=== PATIENT | female | born 1995 | race Caucasian/White ===

== ENCOUNTER 2017-11-21 11:41 | Inpatient (IN) | payer MEDICAID, SELFPAY | END 2017-11-21 11:49 | disposition short-term general hospital (02) | LOC: OB 11:42 | PROVIDERS: Admitting Provider Obstetrics & Gynecology; Family Provider Obstetrics & Gynecology; PCP Nurse Practitioner Family; Visit Provider Obstetrics & Gynecology ==

== ENCOUNTER 2017-11-21 11:53 | Inpatient (IN) | payer MEDICAID, SELFPAY ==
[2017-11-21] VITALS (31 sets, daily range): BP systolic 104–164; BP diastolic 59–99; PULSE 65–114; RESP 16–20; TEMP 36.2–37.3; O2SAT 99–100; BMI 18.5
[2017-11-21 11:54] LABS: Microscopic, Urine URINE MICROSCOPIC (MICROSCOPIC)
[2017-11-21 12:00] LABS: Appearance,Urine CLEAR (Clear); Bilirubin,Urine Negative (Negative); Blood, Urine Negative (Negative); Color,Urine YELLOW (Yellow); Glucose,Urine (UA) Negative (Negative); Ketones,Urine Negative (Negative); Leukocyte Esterase,Urine 3+ (Negative); Nitrate,Urine Negative (Negative); PH,Urine 7.5 (5.0-8.5); Protein,Urine Negative (Negative); Urobilinogen,Urine 0.2 EU/dl (0.2)
[2017-11-21 12:01] LABS: Basophils # 0.1 K/mm3 (0-0.2); Basophils % 0.3 % (0.1-2.0); Eosinophils # 0.2 K/mm3 (0.0-0.4); Eosinophils % 0.9 % (0.1-12.0); Hematocrit 28.3 % (37.0-47.0); Hemoglobin 8.6 g/dL (12.2-16.2); Lymphocytes # 3.5 K/mm3 (0.7-4.5); Lymphocytes % 21.7 K/mm3 (10-50); Mean Corpuscular HGB Conc 30.4 g/dL (31.8-35.4); Mean Corpuscular Hemoglobin 21.2 pg (27.0-31.2); Mean Corpuscular Volume 69.8 fl (81-99); Mean Platelet Volume 8.9 fl (7.4-10.4); Monocytes # 0.8 K/mm3 (0.1-1.0); Monocytes % 4.6 % (1.7-9.3); Neutrophils # 11.6 K/mm3 (1.8-7.8); Neutrophils % 72.4 % (37.0-80.0); Platelet Count 301 K/mm3 (142-424); Red Blood Count 4.06 M/mm3 (4.20-5.40); Red Cell Distribution Width 17.8 % (11.5-17.5); White Blood Count 16.1 K/mm3 (4.8-10.8)
[2017-11-21 12:04] LABS: MANUAL DIFFERENTIAL MANUAL DIFFERENTIAL (MANUAL DIFF)
[2017-11-21 12:22] LABS: Bacteria,Urine 1+ /lpf; RBC,Urine Occasional #/hpf (0-3); Squamous Epithelial Cell,Urine 20-50 #/hpf (0-5)
[2017-11-21 12:31] LABS: Fetal Membrane Rupture (Rapid) Negative (Negative)
[2017-11-21 12:36] LABS: Eosinophils % 1 % (0-3); Hypochromasia 2+; Lymphocytes % 21 % (10-50); Monocytes % 3 % (2-9); Neutrophils % 75 % (42-76); Total Cells Counted 100
[2017-11-21 12:37] LABS: Microcytosis 2+; Platelet Estimate Normal
[2017-11-21 12:53] LABS: Cord Blood PH 7.24 (7.35-7.45)
--- NOTE | 2017-11-21 13:26 | HMH.OPNOTE ---
Date of procedure: 11/21/17 Pre-op Diagnosis:: 1. Term intrauterine . 2. Previous section. 3. Acute distress. Post-op diagnosis:: same (Course 04/20, male in meconium, cord pH 7.24.) Procedure performed:: Emergency repeat low transverse cervical Surgeon:: Nick Luque MD Network Systems Engineer(s):: DARIELA Murray Keypunch Operators Supervisor:: ALO Edwards Raffety Anesthesia: GETA Estimated blood loss (mL): 600 Clinical Note:: 22-year-old 2, 0 white female arrived in labor room in active labor at 2 cm dilatation at 37-6/7 weeks. She had been scheduled for a repeat section a week hence. On the monitor, deep decelerations were noted, and the decision was made to proceed to emergency repeat section. Therefore the patient was taken the operating room. (see note below) Operative findings:: Acute distress Operative note:: After the patient was prepped and draped in usual fashion and general anesthesia was administered (per patient's request due to extreme anxiety), a low Pfannenstiel incision was made through the previous incision, and the fat and fascia was in usual fashion, bleeders being clamped and coagulated along the way. The peritoneum was entered with a knife, and extended [place] with Metzenbaum scissors. The bladder peritoneum was sharply and bluntly dissected from the area of incision, and the bladder was protected with a bladder blade. The uterus was entered in a low transverse fashion with a knife, an incision was extended bluntly, bilaterally. Amniotic sac was entered with a knife, and a large amount of thin meconium extruded. There was no nuchal cord. The baby was found to be in the AJ position of the vertex and, with appropriate fundal pressure, the head was easily delivered. The baby's nasal and oropharynx were bulb suctioned, and the baby was silent until handed to the attending swaging machine operator, Dr. Kwon. He assigned Apgars of 6 at 1 minute and 7 at 5 minutes to this male (weight and length unknown at this time. The cord was clamped and cut, 3 vessels were to be within the cord, and cord blood was obtained. The cord pH was 6.24. The baby was taken to the nursery in good condition, and is reported to be doing well. The placenta was delivered manually, intact. A ring forceps was used to assure adequate drainage to the cervix; this was then passed off the field, as a nonsterile instrument. The uterus was closed in 2 layers, the first a running locked suture of #1 Vicryl as an endometrial layer, and the second a running unlocked suture of #1 Vicryl as a myometrial layer, imbricating over the first. It should be noted that there was considerable oozing throughout the case, and the tissue integrity was poor. The bladder peritoneum was closed with a running locked suture of 2-0 Vicryl. Blood and clots were then swept from the gut, tubes and ovaries inspected and found to be normal. The peritoneum was grasped with 3 Christine clamps, and closed with a running 7 locked suture of 0 Vicryl. The muscle was approximated with a running unlocked suture of 0 Vicryl. The fascia was closed with a running locked suture of #1 Vicryl. The subcutaneous fat and Raven's fascia were closed with a running unlocked suture of 2-0 Vicryl. The skin was closed with a subcuticular suture of 3-0 Vicryl, and appropriately dressed. The sponge and needle counts correct. Estimated blood loss was 600 cc. The urine was clear in the Donohue catheter. Pelvic examination at the close of procedure expressed blood and clots from an involuting uterus, with IV Pitocin running. The patient's blood type is O+. Rubella titer is immune. She plans to bottle feed. Because of a hemoglobin of 8.6 g on admission and 600 cc blood loss, she will be transfused postoperatively. Condition: stable Disposition: PACU Specimens:: None Complications:: None
--- NOTE | 2017-11-21 13:29 | P.OP_ITS ---
Date of procedure: 11/21/17 Pre-op Diagnosis:: 1. Term intrauterine . 2. Previous section. 3. Acute distress. Post-op diagnosis:: same (Course 04/20, male in meconium, cord pH 7.24.) Procedure performed:: Emergency repeat low transverse cervical Surgeon:: Nick Luque MD Psychiatric Nursing Assistant(s):: DARIELA Murray Student Counsellor:: ALO Edwards Raffety Anesthesia: GETA Estimated blood loss (mL): 600 Clinical Note:: 22-year-old 2, 0 white female arrived in labor room in active labor at 2 cm dilatation at 37-6/7 weeks. She had been scheduled for a repeat section a week hence. On the monitor, deep decelerations were noted, and the decision was made to proceed to emergency repeat section. Therefore the patient was taken the operating room. (see note below) Operative findings:: Acute distress Operative note:: After the patient was prepped and draped in usual fashion and general anesthesia was administered (per patient's request due to extreme anxiety), a low Pfannenstiel incision was made through the previous incision, and the fat and fascia was in usual fashion, bleeders being clamped and coagulated along the way. The peritoneum was entered with a knife, and extended [place] with Metzenbaum scissors. The bladder peritoneum was sharply and bluntly dissected from the area of incision, and the bladder was protected with a bladder blade. The uterus was entered in a low transverse fashion with a knife, an incision was extended bluntly, bilaterally. Amniotic sac was entered with a knife, and a large amount of thin meconium extruded. There was no nuchal cord. The baby was found to be in the AJ position of the vertex and , with appropriate fundal pressure, the head was easily delivered. The baby's nasal and oropharynx were bulb suctioned, and the baby was silent until handed to the attending reporting consultant, Dr. Kwon. He assigned Apgars of 6 at 1 minute and 7 at 5 minutes to this male (weight and length unknown at this time. The cord was clamped and cut, 3 vessels were to be within the cord, and cord blood was obtained. The cord pH was 6.24. The baby was taken to the nursery in good condition, and is reported to be doing well. The placenta was delivered manually, intact. A ring forceps was used to assure adequate drainage to the cervix; this was then passed off the field, as a nonsterile instrument. The uterus was closed in 2 layers, the first a running locked suture of #1 Vicryl as an endometrial layer, and the second a running unlocked suture of #1 Vicryl as a myometrial layer, imbricating over the first. It should be noted that there was considerable oozing throughout the case, and the tissue integrity was poor. The bladder peritoneum was closed with a running locked suture of 2-0 Vicryl. Blood and clots were then swept from the gut, tubes and ovaries inspected and found to be normal. The peritoneum was grasped with 3 Christine clamps, and closed with a running 7 locked suture of 0 Vicryl. The muscle was approximated with a running unlocked suture of 0 Vicryl. The fascia was closed with a running locked suture of #1 Vicryl. The subcutaneous fat and Raven's fascia were closed with a running unlocked suture of 2-0 Vicryl. The skin was closed with a subcuticular suture of 3-0 Vicryl, and appropriately dressed. The sponge and needle counts correct. Estimated blood loss was 600 cc. The urine was clear in the Donohue catheter. Pelvic examination at the close of procedure expressed blood and clots from an involuting uterus, with IV Pitocin running. The patient's blood type is O+. Rubella titer is immune. She plans to daniel
--- NOTE | 2017-11-21 13:32 | P.PN_ITS ---
[facility] Anesthesia Record Part I Intake, IV Amount: 1,800 Estimated blood loss (mL): 600 Urine output (mL): 800 Blood Products used (#): none Blood Pressure: 135/68 SaO2: 100 Pulse Rate: 88 Respiratory Rate: 18 Temperature: 97.2 F Patient is:: Drowsy, Stable Stable to PACU at:: 13:25
--- NOTE | 2017-11-21 13:32 | P.PN_ITS ---
[facility] Anesthesia Record Part II Discharge Time: 13:55 Destination: Obstetric PACU nurse assessment reviewed?: Yes Patient Condition:: Good Anesthesia Complications:: None
--- NOTE | 2017-11-21 16:26 | PC.NURSE ---
1325- AWARE OF PT'S SKIN COOL TO TOUCH AND PALE IN COLOR. PT CURRENTLY BEING TYPED AND CROSSMATCHED FOR 2 UNITS OF BLOOD. AWAITING LAB TO CALL WITH BLOOD READY.
--- NOTE | 2017-11-21 16:36 | PC.NURSE ---
1340-PT MEDICATED WITH MORPHINE 2MG IV ORDERED PER ANESTHESIA. PT RATES ABD PAIN 10. 1345-PT MEDICATED WITH TORADOL 30MG IV PER MAR. PT RATES ABD PAIN 10/10.
--- NOTE | 2017-11-21 16:45 | PC.NURSE ---
1325-PT HAS KNEE IMMOBILIZER IN PLACE FROM PRIOR TO PROCEDURE. IPC ON AND GOING TO LLE ONLY. AWARE.
--- NOTE | 2017-11-21 16:52 | PC.NURSE ---
1349-PT REPORTS PAIN LEVEL 9/10 TO ABD. MEDICATED PER MAR W/MORPHINE 2MG IV 1355-PT REPORTS PAIN LEVEL 8/10 TO ABD, INCREASES WITH MASSAGE. MEDICATED PER MAR W/MORPHINE 2MG IV
--- NOTE | 2017-11-21 16:56 | PC.NURSE ---
1415-PT APPEARS TO BE RESTING EASIER AT THIS TIME. PT REFUSING ADDITIONAL PAIN MEDICATION. PT REPORTS SHE IS READY TO GO UPSTAIRS TO SEE HER BABY. AWAITING OB NURSE TO CALL BACK FOR REPORT.
--- NOTE | 2017-11-21 16:59 | PC.NURSE ---
1420-LAB CALLED AT THIS TIME TO NOTIFY THAT BLOOD TRANSFUSION IS READY. 1421-DESTINY OB RN CALLED FOR REPORT AT THIS TIME. NOTIFIED THAT BLOOD IS READY TO BE TRANSFUSED. DESTINY OB RN STATED THAT TO TRANSPORT PT TO ROOM AND SHE WOULD BEGIN BLOOD TRANSFUSION. NOTIFIED NORA DIXON RN THAT PT REPORTS PAIN LEVEL 8/10 TO ABD BUT REFUSES ANY FURTHER PAIN MEDICATION. PT APPEARS TO BE RESTING EASIER AND REPORTS SHE WANTS TO GO UPSTAIRS TO SEE HER BABY. 1425-PT TRANSPORTED TO OB DEPT ROOM 274 PER WILLIAM VERDUZCO & WILLIAM ISAAC. PT LEFT IN CARE OF WILLIAM DIXON WITH BED LOCKED IN LOWEST POSITION .FAMILY AT BEDSIDE. VSS. PT STABLE.
--- NOTE | 2017-11-21 17:20 | SUR.OPER ---
1242-VIABLE INFANT MALE BORN AT THIS TIME
[2017-11-21 22:53] LABS: Hematocrit 29.5 % (37.0-47.0); Hemoglobin 9.5 g/dL (12.2-16.2)
[2017-11-22 07:22] LABS: Hematocrit 25.8 % (37.0-47.0); Hemoglobin 8.6 g/dL (12.2-16.2)
--- NOTE | 2017-11-22 09:28 | HMH.ACPN ---
Internal Medicine - PN: Subj *Date: 11/22/17 *Time: 07:00 (This is /postop day #1. Patient is afebrile. Vital signs are stable. Uterine fundus involuting well. Abdomen soft. Wound is clean. She has been transfused 2 units of packed cells, and her hemoglobin is now 9.5 g, at which she is stable. Baby has been transferred to because of respiratory difficulties and the patient is asking about transfer later today. I will look into that.) Exam Vital signs and Labs for Last 24 Hours: Temp Pulse Resp BP Pulse Ox 98.1 F 65 18 139/96 100 11/21/17 21:55 11/21/17 21:55 11/21/17 21:55 11/21/17 21:55 11/21/17 21:55 Laboratory Results - last 24 hr 11/21/17 11:20: Membrane Rupture Negative 11/21/17 11:24: Urine Color Yellow, Urine Appearance Clear, Urine pH 7.5, Ur Specific [place] 1.010, Urine Protein Negative, Urine Glucose (UA) Negative, Urine Ketones Negative, Urine Blood Negative, Urine Nitrate Negative, Urine Bilirubin Negative, Urine Urobilinogen 0.2, Ur Leukocyte Esterase 3+ A, Urine RBC Occasional, Urine WBC 10-20, Ur Squamous Epith Cells 20-50, Urine Bacteria 1+ 11/21/17 11:45: WBC 16.1 H, RBC 4.06 L, Hgb 8.6 L, Hct 28.3 L, MCV 69.8 L, MCH 21.2 L, MCHC 30.4 L, RDW 17.8 H, Plt Count 301, MPV 8.9, Neut % (Auto) 72.4, Lymph % (Auto) 21.7, Coffee % (Auto) 4.6, Eos % (Auto) 0.9, Baso % (Auto) 0.3, Neut # (Auto) 11.6 H, Lymph # (Auto) 3.5, Coffee # (Auto) 0.8, Eos # (Auto) 0.2, Baso # (Auto) 0.1, Total Counted 100, Neutrophils % (Manual) 75, Lymphocytes % (Manual) 21, Monocytes % (Manual) 3, Eosinophils % (Manual) 1, Platelet Estimate Normal, Hypochromasia 2+, Microcytosis 2+ 11/21/17 11:45: Blood Type O Positive, Antibody Screen Negative, Crossmatch (AHG) See Detail 11/21/17 12:40: Cord ABG pH 7.24 L* 11/21/17 22:23: Hgb 9.5 L D, Hct 29.5 L 11/22/17 07:03: Hgb 8.6 L, Hct 25.8 L I & O for Last 24 hours: Intake & Output 11/19/17 11/20/17 11/21/17 11/22/17 11:59 11:59 11:59 11:59 Intake Total 2200 / 2200 Output Total 900 / 900 Balance 1300 / 1300
--- NOTE | 2017-11-22 09:31 | P.PN_ITS ---
Internal Medicine - PN: Subj *Date: 11/22/17 *Time: 07:00 (This is /postop day #1. Patient is afebrile. Vital signs are stable. Uterine fundus involuting well. Abdomen soft. Wound is clean. She has been transfused 2 units of packed cells, and her hemoglobin is now 9.5 g, at which she is stable. Baby has been transferred to because of respiratory difficulties and the patient is asking about transfer later today. I will look into that.) Exam Vital signs and Labs for Last 24 Hours: Temp Pulse Resp BP Pulse Ox 98.1 F 65 18 139/96 100 11/21/17 21:55 11/21/17 21:55 11/21/17 21:55 11/21/17 21:55 11/21/17 21:55 Laboratory Results - last 24 hr 11/21/17 11:20: Membrane Rupture Negative 11/21/17 11:24: Urine Color Yellow, Urine Appearance Clear, Urine pH 7.5, Ur Specific [place] 1.010, Urine Protein Negative, Urine Glucose (UA) Negative, Urine Ketones Negative, Urine Blood Negative, Urine Nitrate Negative, Urine Bilirubin Negative, Urine Urobilinogen 0.2, Ur Leukocyte Esterase 3+ A, Urine RBC Occasional, Urine WBC 10-20, Ur Squamous Epith Cells 20-50, Urine Bacteria 1 + 11/21/17 11:45: WBC 16.1 H, RBC 4.06 L, Hgb 8.6 L, Hct 28.3 L, MCV 69.8 L, MCH 21.2 L, MCHC 30.4 L, RDW 17.8 H, Plt Count 301, MPV 8.9, Neut % (Auto) 72.4, Lymph % (Auto) 21.7, [place] % (Auto) 4.6, Eos % (Auto) 0.9, Baso % (Auto) 0.3, Neut # (Auto) 11.6 H, Lymph # (Auto) 3.5, [place] # (Auto) 0.8, Eos # (Auto) 0.2, Baso # (Auto) 0.1, Total Counted 100, Neutrophils % (Manual) 75, Lymphocytes % ( Manual) 21, Monocytes % (Manual) 3, Eosinophils % (Manual) 1, Platelet Estimate Normal, Hypochromasia 2+, Microcytosis 2+ 11/21/17 11:45: Blood Type O Positive, Antibody Screen Negative, Crossmatch (AHG ) See Detail 11/21/17 12:40: Cord ABG pH 7.24 L* 11/21/17 22:23: Hgb 9.5 L D, Hct 29.5 L 11/22/17 07:03: Hgb 8.6 L, Hct 25.8 L I & O for Last 24 hours: Intake & Output 11/19/17 11/20/17 11/21/17 11/22/17 11:59 11:59 11:59 11:59 Intake Total 2200 / 2200 Output Total 900 / 900 Balance 1300 / 1300
--- NOTE | 2017-11-22 12:07 | HMH.PHAVTE ---
[facility] Pharmacy VTE Monitoring - Patient Demographics Admission date: 11/21/17 Report Date: 11/22/17 Time: 12:07 Allergies/Adverse Reactions: nitrofurantoin [From MACROBID] Allergy (Severe, Verified 11/21/17 19:19) S-ANAPHYLAXIS amoxicillin [From AUGMENTIN] Allergy (Mild, Verified 11/21/17 19:19) cefdinir [From OMNICEF] Allergy (Mild, Verified 11/21/17 19:19) clavulanic acid [From AUGMENTIN] Allergy (Mild, Verified 11/21/17 19:19) Sulfa (Sulfonamide Antibiotics) [SULFA (SULFONAMIDE ANTIBIOTICS)] Allergy (Mild, Verified 11/21/17 19:19) acetaminophen [From LORTAB] Allergy (Unknown, Verified 11/21/17 19:19) azithromycin [AZITHROMYCIN] Allergy (Unknown, Verified 11/21/17 19:19) hydrocodone [From LORTAB] Allergy (Unknown, Verified 11/21/17 19:17) Height: 1.55 m Weight: 44.476 kg - VTE Risk Labs: VTE Related Lab Results Hgb 8.6 g/dL (12.2-16.2) L 11/22/17 07:03 Hct 25.8 % (37.0-47.0) L 11/22/17 07:03 Plt Count 301 K/mm3 (142-424) 11/21/17 11:45 - Prophylaxis Types of VTE Prophylaxis: IPCS Knee High
--- NOTE | 2017-11-22 13:35 | P.PN_ITS ---
Internal Medicine - PN: Subj *Date: 11/22/17 *Time: 13:33 (Patient remained stable. I have checked with the the baby is improving. The baby will be on antibiotics for at least a couple of days, and the patient wishes to be transferred for compassionate care . I have checked with Dr. Nicole Ramos at , and she is agreed to accept the patient under those circumstances. It will be arranged.) Exam Vital signs and Labs for Last 24 Hours: Temp Pulse Resp BP Pulse Ox 98.1 F 65 18 139/96 100 11/21/17 21:55 11/21/17 21:55 11/21/17 21:55 11/21/17 21:55 11/21/17 21:55 Laboratory Results - last 24 hr 11/21/17 11:45: Blood Type O Positive, Antibody Screen Negative, Crossmatch (AHG ) See Detail 11/21/17 22:23: Hgb 9.5 L D, Hct 29.5 L 11/22/17 07:03: Hgb 8.6 L, Hct 25.8 L I & O for Last 24 hours: Intake & Output 11/20/17 11/21/17 11/22/17 11/23/17 11:59 11:59 11:59 11:59 Intake Total 2200 / 2200 Output Total 900 / 900 Balance 1300 / 1300 Microbiology Reports for the Last 24 Hours: Microbiology 11/21/17 11:24 Urine,Clean Catch Urine Culture - Preliminary NO GROWTH AFTER 24 HOURS
--- NOTE | 2018-04-07 13:10 | P.DS_ITS ---
General - General Admission date:: 11/21/17 Discharge date: 11/25/17 Hospital Course Hospital Course: 23-year-old white female ( 2, para 1) arrived in the labor room in active labor at 37-6/7 weeks. She was scheduled for a repeat section the following week. Deep decelerations were noted on the monitor and the decision was made to proceed to emergency repeat section the patient was then taken to the operating room where the procedure carried out, without complications. The baby had Apgars of 6 at 1 minute and 7 at 5 minutes and was a male infant, who is subsequently done well. and postoperatively, the patient did well. She was discharged home on the fourth postoperative day, on iron and vitamins and Tylenol and Motrin, as needed for pain. (This report is possibly slightly inaccurate, as the original report was lost in the transition to a new computer system. It is being dictated 4 months later to the best of my recollection.) She was given appropriate instructions as to diet and exercise, and an appointment for follow-up 2 weeks later. Objective Vital signs: Temp Pulse Resp BP Pulse Ox 98.1 F 65 18 139/96 100 11/21/17 21:55 11/21/17 21:55 11/21/17 21:55 11/21/17 21:55 11/21/17 21:55 Discharge Plan - Patient Discharge Instructions Additional Instructions: NO HEAVY LIFTING OR DRIVING FOR 2 WEEKS OR WHILE TAKING PAIN MEDICATIONS. NOTHING IN VAGINA FOR 6 WEEKS Patient Instructions: Post Discharge Instructions - Follow up Plan Disposition: Home, Self-Senior Living Medications: Home Medications Medication Instructions Recorded Confirmed Type Polyethylene Glycol 3350 [Miralax 17 gm PO DAILY 11/22/17 02/07/18 History 17gm Packet] hydrOXYzine pamoate [Vistaril] 25 mg PO TID 11/22/17 02/07/18 History Prescriptions/Medication Reconciliation: No Action Polyethylene Glycol 3350 [Miralax 17gm Packet] 17 gm PO DAILY predniSONE [Deltasone 10mg tablet] 10 mg PO BID 5 Days #10 tab hydrOXYzine pamoate [Vistaril] 25 mg PO TID Amoxicillin [Amoxicillin 500mg Tab] 500 mg PO TID 10 Days #30 tab Loratadine [Claritin 10mg Tablet] 10 mg PO DAILY #14 tab
== END 2017-11-22 20:45 | disposition home or self-care (01) | DRG 775 ==
LOC: OBOUT 11:55
PROVIDERS: Admitting Provider Obstetrics & Gynecology; PCP Nurse Practitioner Family; Visit Provider Obstetrics & Gynecology
PROC: 10S0XZZ Reposition Products of Conception, External Approach (ICD-10-PCS; CPT 59514; principal; 2017-11-21 12:00)
DX: O34.211 Maternal care for low transverse scar from previous cesarean delivery (principal); Z37.0 Single live birth; N85.8 Other specified noninflammatory disorders of uterus; O76 Abnormality in fetal heart rate and rhythm complicating labor and delivery; Z3A.37 37 weeks gestation of pregnancy
CPT/HCPCS: 59514; 36415; 59025; 81001; 82800; 84112; 85007; 85014; 85018; 85025; 86850; 87086; J0131; J0330; J2405; P9016

== ENCOUNTER 2017-12-27 19:48 | Emergency (ER) | payer MEDICAID, SELFPAY ==
[2017-12-27 19:57] VITALS: BP 122/91; PULSE 92; RESP 18; TEMP 37.1; O2SAT 97; BMI 14.9
--- NOTE | 2017-12-27 21:24 | PC.NURSE ---
REPORT CALLED TO CHETAN AT [facility] IN [place]
--- NOTE | 2017-12-27 22:58 | HMH.EDGENADL ---
ED Disposition Clinical Impression: Incisional pain Disposition: Home, Self-Care Condition on Discharge: Good Instructions: DI for Acute Pain -- Adult Additional Instructions: see dr castro this week Referrals: Jami Sanders APRN [Primary Care Provider] - - Critical Care Critical Care Time: No Attestation: On 12/27/17, the high probability of a clinically significant, sudden or life threatening deterioration of the following system(s) required my full and direct attention, intervention and personal management. The time I documented below is in addition to time spent performing reported procedures but includes the following listed in this critical care notation. Medical Decision Making - Medical Records Medical records reviewed: Yes: I reviewed the patient's medical records. Vital Signs: 12/27/17 19:57 Temperature 98.7 F Temperature Source Oral Pulse Rate [Right] 92 H Respiratory Rate 18 Blood Pressure [Right Arm] 122/91 Blood Pressure Mean [Right Arm] 101 Blood Pressure Source [Right Arm] Automatic Cuff Blood Pressure Position [Right Arm] Sitting 02 Sat by Pulse Oximetry 97 Oxygen Delivery Method Room Air - Lab Data Lab results reviewed: Yes: I reviewed the patient's lab results. Lab Results 12/27/17 21:00: Urine Color Yellow, Urine Appearance Clear, Urine pH 6.0, Ur Specific [place] <= 1.005, Urine Protein Negative, Urine Glucose (UA) Negative, Urine Ketones Negative, Urine Blood Trace-i, Urine Nitrate Negative, Urine Bilirubin Negative, Urine Urobilinogen 0.2, Ur Leukocyte Esterase Negative Orders (Tests/Meds): ORDERS Category Date Time Status UA [Urinalysis and Microscopic] Stat Lab 12/27/17 21:00 Results - Physician Consults Physician Consulted: [email or web address] Reason -: Pt condition - Anthony Inquiry Pt receiving controlled substance: No General Adult HPI - General Chief complaint: PAIN Stated complaint: Stitches Opened/Site Pain Time Seen by Provider: 12/27/17 22:58 Mode of Arrival: Ambulatory Source of Information: Patient, Relative, Medical Record Limitations: No Limitations Description of Symptoms (Recalled from ER Triage Doc. by RN): HAD A C SECTION ONE MONTH AGO. C/O PAIN AND BLEEDING FROM EDGES. AREA NOTED TO HAVE SMALL SCABBED AREAS TO EDGES NO BLEEDING OR DRAINAGE PRESENT. C/O BLOOD IN URINE AND PAIN WITH URINATION - History of Present Illness HPI narrative: recent c sec and has pain at end of incision Onset (ago): day(s) Radiation: non-radiation Severity: moderate - Related Data Home Medications Medication Instructions Recorded Confirmed Metoprolol Tartrate [Lopressor 50 mg PO DAILY 11/22/17 12/27/17 50mg tablet] Polyethylene Glycol 3350 [Miralax 17 gm PO DAILY 11/22/17 12/27/17 17gm Packet] hydrOXYzine pamoate [Vistaril] 25 mg PO TID 11/22/17 12/27/17 Allergies Allergy/AdvReac Type Severity Reaction Status Date / Time nitrofurantoin Allergy Severe S-ANAPHYLAX Verified 11/21/17 19:19 [From MACROBID] IS amoxicillin [From AUGMENTIN] Allergy Mild Verified 11/21/17 19:19 cefdinir [From OMNICEF] Allergy Mild Verified 11/21/17 19:19 clavulanic acid Allergy Mild Verified 11/21/17 19:19 [From AUGMENTIN] Sulfa (Sulfonamide Allergy Mild Verified 11/21/17 19:19 Antibiotics) [SULFA (SULFONAMIDE ANTIBIOTICS)] acetaminophen [From LORTAB] Allergy Unknown Verified 11/21/17 19:19 azithromycin [AZITHROMYCIN] Allergy Unknown Verified 11/21/17 19:19 hydrocodone [From LORTAB] Allergy Unknown Verified 11/21/17 19:17 [facility] History I have reviewed the patient's past medical history: Yes Medical History: Denies:: Internal Pacemaker Other Surgeries: No: Pacemaker - *Social History Educational Level: Attended Grade School Smoking Status: Never smoker Alcohol Intake: never - Psychiatric History Expresses thoughts of harming self/others: None Suicide Plan Description: No Plan ROS Obtained: Yes All systems reviewe
[2017-12-27 23:07] LABS: Microscopic, Urine URINE MICROSCOPIC (MICROSCOPIC)
--- NOTE | 2017-12-27 23:07 | ED_ITS ---
ED Disposition Clinical Impression: Incisional pain Disposition: Home, Self-Care Condition on Discharge: Good Instructions: DI for Acute Pain -- Adult Additional Instructions: see dr castro this week Referrals: Jami Sanders APRN [Primary Care Provider] - - Critical Care Critical Care Time: No Attestation: On 12/27/17, the high probability of a clinically significant, sudden or life threatening deterioration of the following system(s) required my full and direct attention, intervention and personal management. The time I documented below is in addition to time spent performing reported procedures but includes the following listed in this critical care notation. Medical Decision Making - Medical Records Medical records reviewed: Yes: I reviewed the patient's medical records. Vital Signs: 12/27/17 19:57 Temperature 98.7 F Temperature Source Oral Pulse Rate [Right] 92 H Respiratory Rate 18 Blood Pressure [Right Arm] 122/91 Blood Pressure Mean [Right Arm] 101 Blood Pressure Source [Right Arm] Automatic Cuff Blood Pressure Position [Right Arm] Sitting 02 Sat by Pulse Oximetry 97 Oxygen Delivery Method Room Air - Lab Data Lab results reviewed: Yes: I reviewed the patient's lab results. Lab Results 12/27/17 21:00: Urine Color Yellow, Urine Appearance Clear, Urine pH 6.0, Ur Specific [place] <= 1.005, Urine Protein Negative, Urine Glucose (UA) Negative, Urine Ketones Negative, Urine Blood Trace-i, Urine Nitrate Negative, Urine Bilirubin Negative, Urine Urobilinogen 0.2, Ur Leukocyte Esterase Negative Orders (Tests/Meds): ORDERS Category Date Time Status UA [Urinalysis and Microscopic] Stat Lab 12/27/17 21:00 Results - Physician Consults Physician Consulted: [email or web address] Reason -: Pt condition - Anthony Inquiry Pt receiving controlled substance: No General Adult HPI - General Chief complaint: PAIN Stated complaint: Stitches Opened/Site Pain Time Seen by Provider: 12/27/17 22:58 Mode of Arrival: Ambulatory Source of Information: Patient, Relative, Medical Record Limitations: No Limitations Description of Symptoms (Recalled from ER Triage Doc. by RN): HAD A C SECTION ONE MONTH AGO. C/O PAIN AND BLEEDING FROM EDGES. AREA NOTED TO HAVE SMALL SCABBED AREAS TO EDGES NO BLEEDING OR DRAINAGE PRESENT. C/O BLOOD IN URINE AND PAIN WITH URINATION - History of Present Illness HPI narrative: recent c sec and has pain at end of incision Onset (ago): day(s) Radiation: non-radiation Severity: moderate - Related Data Home Medications Medication Instructions Recorded Confirmed Metoprolol Tartrate [Lopressor 50 mg PO DAILY 11/22/17 12/27/17 50mg tablet] Polyethylene Glycol 3350 [Miralax 17 gm PO DAILY 11/22/17 12/27/17 17gm Packet] hydrOXYzine pamoate [Vistaril] 25 mg PO TID 11/22/17 12/27/17 Allergies Allergy/AdvReac Type Severity Reaction Status Date / Time nitrofurantoin Allergy Severe S-ANAPHYLAX Verified 11/21/17 19:19 [From MACROBID] IS amoxicillin [From AUGMENTIN] Allergy Mild Verified 11/21/17 19:19 cefdinir [From OMNICEF] Allergy Mild Verified 11/21/17 19:19 clavulanic acid Allergy Mild Verified 11/21/17 19:19 [From AUGMENTIN] Sulfa (Sulfonamide Allergy Mild Verified 11/21/17 19:19 Ant
[2017-12-27 23:09] LABS: Appearance,Urine CLEAR (Clear); Bilirubin,Urine Negative (Negative); Blood, Urine TRACE-I (Negative); Color,Urine YELLOW (Yellow); Glucose,Urine (UA) Negative (Negative); Ketones,Urine Negative (Negative); Leukocyte Esterase,Urine Negative (Negative); Nitrate,Urine Negative (Negative); Protein,Urine Negative (Negative); Specific Gravity, Urine <= 1.005 (1.005-1.030); Urobilinogen,Urine 0.2 EU/dl (0.2)
[2017-12-27 23:27] VITALS: BP 118/68; PULSE 74; RESP 16; TEMP 37.2; O2SAT 99
[2017-12-28 01:02] LABS: Bacteria,Urine 1+ /lpf; WBC,Urine Occasional #/hpf (0-3)
== END 2017-12-27 23:32 | disposition home or self-care (01) ==
PROVIDERS: Emergency Medicine; Emergency Provider Emergency Medicine; Family Provider Obstetrics & Gynecology; PCP Nurse Practitioner Family
DX: G89.18 Other acute postprocedural pain (principal); Z79.899 Other long term (current) drug therapy; Z88.1 Allergy status to other antibiotic agents; Z88.2 Allergy status to sulfonamides
CPT/HCPCS: 81001; 99282

== ENCOUNTER 2018-02-04 15:05 | Emergency (ER) | payer MEDICAID, SELFPAY ==
[2018-02-04 15:11] VITALS: BP 117/79; PULSE 99; RESP 18; TEMP 37; O2SAT 96; BMI 14.3
--- NOTE | 2018-02-04 15:16 | HMH.EDURI ---
ED Disposition Clinical Impression: Otitis media Qualifiers: Otitis media type: unspecified Chronicity: acute Qualified Code(s): H66.90 - Otitis media, unspecified, unspecified ear Disposition: Home, Self-Care Condition on Discharge: Good Instructions: DI for Otitis Media (Middle Ear Infection)-Child Additional Instructions: Fluids, Tylenol, follow up with your family doctor in two to three days; Rx amoxicillin, which you have stated is not an allergy. Prescriptions: Amoxicillin [Amoxicillin 500mg Tab] 500 mg PO TID 10 Days #30 tab - Critical Care Critical Care Time: No Attestation: On , the high probability of a clinically significant, sudden or life threatening deterioration of the following system(s) required my full and direct attention, intervention and personal management. The time I documented below is in addition to time spent performing reported procedures but includes the following listed in this critical care notation. Medical Decision Making - Anthony Inquiry Pt receiving controlled substance: No Vital Signs: 02/04/18 15:11 Temperature 98.6 F Temperature Source Oral Pulse Rate [Right Brachial] 99 H Respiratory Rate 18 Blood Pressure [Right Arm] 117/79 Blood Pressure Mean [Right Arm] 91 Blood Pressure Source [Right Arm] Automatic Cuff Blood Pressure Position [Right Arm] Sitting 02 Sat by Pulse Oximetry 96 Oxygen Delivery Method Room Air URI/Sore Throat HPI - General Chief Complaint: Ear Stated Complaint: sore throat, head congestion Time Seen by Provider: 02/04/18 15:16 Mode of Arrival: Ambulatory Source of Information: Patient Limitations: No Limitations Description of Symptoms (Recalled from ER Triage Doc. by RN): PT C/O SORE THROAT AND EAR PAIN - History of Present Illness MD Complaint: cough, sore throat, rhinorrhea, nasal congestion, other (B earache x one day; no flu sx) Onset (ago): day(s) Severity: mild Relieving factors: nothing Exacerbating factors: nothing Able to tolerate fluids by mouth: Yes Associated symptoms: rhinorrhea, nasal congestion, sore throat, cough Treatments prior to arrival: none - Related Data Home Medications Medication Instructions Recorded Confirmed Metoprolol Tartrate [Lopressor 50 mg PO DAILY 11/22/17 12/27/17 50mg tablet] Polyethylene Glycol 3350 [Miralax 17 gm PO DAILY 11/22/17 12/27/17 17gm Packet] hydrOXYzine pamoate [Vistaril] 25 mg PO TID 11/22/17 12/27/17 Previous Rx's Medication Instructions Recorded norgestimate-ethinyl estradiol 1 tab PO DAILY 28 Days #28 tab 01/03/18 0.18 mg/0.215mg/0.25mg-35 mcg(28)tablet Amoxicillin [Amoxicillin 500mg Tab] 500 mg PO TID 10 Days #30 tab 02/04/18 Allergies Allergy/AdvReac Type Severity Reaction Status Date / Time nitrofurantoin Allergy Severe S-ANAPHYLAX Verified 01/03/18 15:25 [From MACROBID] IS amoxicillin [From AUGMENTIN] Allergy Mild Verified 01/03/18 15:25 cefdinir [From OMNICEF] Allergy Mild Verified 01/03/18 15:25 clavulanic acid Allergy Mild Verified 01/03/18 15:25 [From AUGMENTIN] Sulfa (Sulfonamide Allergy Mild Verified 01/03/18 15:25 Antibiotics) [SULFA (SULFONAMIDE ANTIBIOTICS)] acetaminophen [From LORTAB] Allergy Unknown Verified 01/03/18 15:25 azithromycin [AZITHROMYCIN] Allergy Unknown Verified 01/03/18 15:25 hydrocodone [From LORTAB] Allergy Unknown Verified 01/03/18 15:25 H History Medical History: Reports:: Anxiety Denies:: Diabetes Mellitus Type 1, Diabetes Mellitus Type 2, Internal Pacemaker Other Medical History: Reports: Other Comment: IBS Other Surgeries: No: Pacemaker - Social History Smoking Status: Never smoker Alcohol Intake: never - Psychiatric History Expresses thoughts of harming self/others: None Suicide Plan Description: No Plan Pschychiatric History:: Reports:: Anxiety ROS Obtained: Yes All systems reviewed & no additional complaints - Neurologic Neurologic: Reports other (hx anxiety) Phy
--- NOTE | 2018-02-04 15:19 | ED_ITS ---
ED Disposition Clinical Impression: Otitis media Qualifiers: Otitis media type: unspecified Chronicity: acute Qualified Code(s): H66.90 - Otitis media, unspecified, unspecified ear Disposition: Home, Self-Care Condition on Discharge: Good Instructions: DI for Otitis Media (Middle Ear Infection)-Child Additional Instructions: Fluids, Tylenol, follow up with your family doctor in two to three days; Rx amoxicillin, which you have stated is not an allergy. Prescriptions: Amoxicillin [Amoxicillin 500mg Tab] 500 mg PO TID 10 Days #30 tab - Critical Care Critical Care Time: No Attestation: On , the high probability of a clinically significant, sudden or life threatening deterioration of the following system(s) required my full and direct attention, intervention and personal management. The time I documented below is in addition to time spent performing reported procedures but includes the following listed in this critical care notation. Medical Decision Making - Anthony Inquiry Pt receiving controlled substance: No Vital Signs: 02/04/18 15:11 Temperature 98.6 F Temperature Source Oral Pulse Rate [Right Brachial] 99 H Respiratory Rate 18 Blood Pressure [Right Arm] 117/79 Blood Pressure Mean [Right Arm] 91 Blood Pressure Source [Right Arm] Automatic Cuff Blood Pressure Position [Right Arm] Sitting 02 Sat by Pulse Oximetry 96 Oxygen Delivery Method Room Air URI/Sore Throat HPI - General Chief Complaint: Ear Stated Complaint: sore throat, head congestion Time Seen by Provider: 02/04/18 15:16 Mode of Arrival: Ambulatory Source of Information: Patient Limitations: No Limitations Description of Symptoms (Recalled from ER Triage Doc. by RN): PT C/O SORE THROAT AND EAR PAIN - History of Present Illness MD Complaint: cough, sore throat, rhinorrhea, nasal congestion, other (B earache x one day; no flu sx) Onset (ago): day(s) Severity: mild Relieving factors: nothing Exacerbating factors: nothing Able to tolerate fluids by mouth: Yes Associated symptoms: rhinorrhea, nasal congestion, sore throat, cough Treatments prior to arrival: none - Related Data Home Medications Medication Instructions Recorded Confirmed Metoprolol Tartrate [Lopressor 50 mg PO DAILY 11/22/17 12/27/17 50mg tablet] Polyethylene Glycol 3350 [Miralax 17 gm PO DAILY 11/22/17 12/27/17 17gm Packet] hydrOXYzine pamoate [Vistaril] 25 mg PO TID 11/22/17 12/27/17 Previous Rx's Medication Instructions Recorded norgestimate-ethinyl estradiol 1 tab PO DAILY 28 Days #28 tab 01/03/18 0.18 mg/0.215mg/0.25mg-35 mcg(28)tablet Amoxicillin [Amoxicillin 500mg Tab] 500 mg PO TID 10 Days #30 tab 02/04/18 Allergies Allergy/AdvReac Type Severity Reaction Status Date / Time nitrofurantoin Allergy Severe S-ANAPHYLAX Verified 01/03/18 15:25 [From MACROBID] IS amoxicillin [From AUGMENTIN] Allergy Mild Verified 01/03/18 15:25 cefdinir [From OMNICEF] Allergy Mild Verified 01/03/18 15:25 clavulanic acid Allergy Mild Verified 01/03/18 15:25 [From AUGMENTIN] Sulfa (Sulfonamide Allergy Mild Verified 01/03/18 15:25 Antibiotics) [SULFA (SULFONAMIDE ANTIBIOTICS)] acetaminophen [From LORTAB] Allergy Unknown Verified 01/03/18 15:25 azith
[2018-02-04 17:12] VITALS: BP 127/85; PULSE 72; RESP 18; TEMP 36.7; O2SAT 99
== END 2018-02-04 16:10 | disposition home or self-care (01) ==
PROVIDERS: Emergency Provider Emergency Medicine; Family Provider Obstetrics & Gynecology; PCP Nurse Practitioner Family
DX: H66.93 Otitis media, unspecified, bilateral (principal); Z95.0 Presence of cardiac pacemaker; Z88.2 Allergy status to sulfonamides; Z88.1 Allergy status to other antibiotic agents
CPT/HCPCS: 99282

== ENCOUNTER 2018-02-07 01:33 | Emergency (ER) | payer MEDICAID, SELFPAY ==
[2018-02-07 01:34] VITALS: BP 136/93; PULSE 86; RESP 20; TEMP 36.6; O2SAT 98; BMI 16.2
--- NOTE | 2018-02-07 01:39 | XR_ITS ---
XR chest 2V HISTORY: ITS.REASON: cough ORDERING PHYSICIAN: Fede Bird MD PATIENT AGE: 22 years COMPARISON: 11/26/2016 FINDINGS: The cardiomediastinal silhouette and pulmonary vascularity are within normal limits. On the lateral view there is an 11 mm nodular density in the lower lobe posteriorly. This is not identified on the frontal view. While this could be related to artifact from overlying summation density from the ribs and spine as the patient is slightly rotated, one cannot exclude possibility of a developing nodule. This is not readily apparent on multiple previous exams. Follow-up radiograph suggested. If this persists then, CT may be needed for further evaluation. No lobar consolidation or collapse.. No acute bony abnormalities. IMPRESSION: 1. 11 mm nodular opacity in the lung base posteriorly possibly related to overlying summation density versus developing pulmonary nodule. Follow-up recommended. 2. Otherwise negative chest.
[2018-02-07 02:06] LABS: Strep Scrn Group A (Rapid) Negative (Negative)
--- NOTE | 2018-02-07 04:36 | HMH.EDGENADL ---
ED Disposition Clinical Impression: Laryngitis Disposition: Home, Self-Care Condition on Discharge: Good Instructions: DI for Laryngitis Additional Instructions: use meds and see pcp for follow up Prescriptions: Loratadine [Claritin 10mg Tablet] 10 mg PO DAILY #14 tab predniSONE [Deltasone 10mg tablet] 10 mg PO BID 5 Days #10 tab Referrals: Jami Sanders APRN [Primary Care Provider] - - Critical Care Critical Care Time: No Attestation: On 02/07/18, the high probability of a clinically significant, sudden or life threatening deterioration of the following system(s) required my full and direct attention, intervention and personal management. The time I documented below is in addition to time spent performing reported procedures but includes the following listed in this critical care notation. Medical Decision Making - Medical Records Medical records reviewed: Yes: I reviewed the patient's medical records. - Anthony Inquiry Pt receiving controlled substance: No Vital Signs: 02/07/18 01:34 Temperature 97.9 F Temperature Source Oral Pulse Rate [Right Radial] 86 Respiratory Rate 20 Blood Pressure [Right Radial Artery] 136/93 Blood Pressure Mean [Right Radial Artery] 107 Blood Pressure Position [Right Radial Artery] Sitting 02 Sat by Pulse Oximetry 98 Oxygen Delivery Method Room Air - Lab Data Lab Results 02/07/18 01:30: Influenza Type A Ag Negative, Influenza Type B Ag Negative, Group A Strep Rapid Negative Orders (Tests/Meds): ORDERS Category Date Time Status Chest XR 2 view (NOT portable) [XR chest 2V] Stat Exams 02/07/18 01:39 Taken Strep Screen Confirmation Stat Micro 02/07/18 01:30 Received General Adult HPI - General Chief complaint: PAIN Stated complaint: throat pain Time Seen by Provider: 02/07/18 04:36 Mode of Arrival: EMS Limitations: No Limitations Description of Symptoms (Recalled from ER Triage Doc. by RN): throat pain, muffled voice x 2 days. pt is on antibx for left ear infection at this time. - History of Present Illness HPI narrative: pt with recent ear infection on abx and over the day dev sore throat with laryngitis - pt with no rash - no tob - pt presented with progressive sx Onset (ago): day(s) Location: mouth Severity: moderate - Related Data Home Medications Medication Instructions Recorded Confirmed Polyethylene Glycol 3350 [Miralax 17 gm PO DAILY 11/22/17 02/07/18 17gm Packet] hydrOXYzine pamoate [Vistaril] 25 mg PO TID 11/22/17 02/07/18 Previous Rx's Medication Instructions Recorded Amoxicillin [Amoxicillin 500mg Tab] 500 mg PO TID 10 Days #30 tab 02/04/18 Loratadine [Claritin 10mg Tablet] 10 mg PO DAILY #14 tab 02/07/18 predniSONE [Deltasone 10mg tablet] 10 mg PO BID 5 Days #10 tab 02/07/18 Allergies Allergy/AdvReac Type Severity Reaction Status Date / Time nitrofurantoin Allergy Severe S-ANAPHYLAX Verified 01/03/18 15:25 [From MACROBID] IS cefdinir [From OMNICEF] Allergy Mild Verified 01/03/18 15:25 clavulanic acid Allergy Mild Verified 01/03/18 15:25 [From AUGMENTIN] Sulfa (Sulfonamide Allergy Mild Verified 01/03/18 15:25 Antibiotics) [SULFA (SULFONAMIDE ANTIBIOTICS)] acetaminophen [From LORTAB] Allergy Unknown Verified 01/03/18 15:25 azithromycin [AZITHROMYCIN] Allergy Unknown Verified 01/03/18 15:25 hydrocodone [From LORTAB] Allergy Unknown Verified 01/03/18 15:25 [facility] History I have reviewed the patient's past medical history: Yes Medical History: Reports:: Anxiety Denies:: Cancer, Diabetes Mellitus Type 1, Diabetes Mellitus Type 2, Internal Pacemaker, MRSA Other Medical History: Reports: Other Comment: IBS Other Surgeries: No: Pacemaker Amputation: No Fractures: No - Social History Smoking Status: Never smoker Alcohol Intake: never - Psychiatric History Expresses thoughts of harming self/others: None Suicide Plan Description: No Plan Pschychiatric History:: Rep
--- NOTE | 2018-02-07 04:42 | ED_ITS ---
ED Disposition Clinical Impression: Laryngitis Disposition: Home, Self-Care Condition on Discharge: Good Instructions: DI for Laryngitis Additional Instructions: use meds and see pcp for follow up Prescriptions: Loratadine [Claritin 10mg Tablet] 10 mg PO DAILY #14 tab predniSONE [Deltasone 10mg tablet] 10 mg PO BID 5 Days #10 tab Referrals: Jami Sanders APRN [Primary Care Provider] - - Critical Care Critical Care Time: No Attestation: On 02/07/18, the high probability of a clinically significant, sudden or life threatening deterioration of the following system(s) required my full and direct attention, intervention and personal management. The time I documented below is in addition to time spent performing reported procedures but includes the following listed in this critical care notation. Medical Decision Making - Medical Records Medical records reviewed: Yes: I reviewed the patient's medical records. - Anthony Inquiry Pt receiving controlled substance: No Vital Signs: 02/07/18 01:34 Temperature 97.9 F Temperature Source Oral Pulse Rate [Right Radial] 86 Respiratory Rate 20 Blood Pressure [Right Radial Artery] 136/93 Blood Pressure Mean [Right Radial Artery] 107 Blood Pressure Position [Right Radial Artery] Sitting 02 Sat by Pulse Oximetry 98 Oxygen Delivery Method Room Air - Lab Data Lab Results 02/07/18 01:30: Influenza Type A Ag Negative, Influenza Type B Ag Negative, Group A Strep Rapid Negative Orders (Tests/Meds): ORDERS Category Date Time Status Chest XR 2 view (NOT portable) [XR chest 2V] Stat Exams 02/07/18 01:39 Taken Strep Screen Confirmation Stat Micro 02/07/18 01:30 Received General Adult HPI - General Chief complaint: PAIN Stated complaint: throat pain Time Seen by Provider: 02/07/18 04:36 Mode of Arrival: EMS Limitations: No Limitations Description of Symptoms (Recalled from ER Triage Doc. by RN): throat pain, muffled voice x 2 days. pt is on antibx for left ear infection at this time. - History of Present Illness HPI narrative: pt with recent ear infection on abx and over the day dev sore throat with laryngitis - pt with no rash - no tob - pt presented with progressive sx Onset (ago): day(s) Location: mouth Severity: moderate - Related Data Home Medications Medication Instructions Recorded Confirmed Polyethylene Glycol 3350 [Miralax 17 gm PO DAILY 11/22/17 02/07/18 17gm Packet] hydrOXYzine pamoate [Vistaril] 25 mg PO TID 11/22/17 02/07/18 Previous Rx's Medication Instructions Recorded Amoxicillin [Amoxicillin 500mg Tab] 500 mg PO TID 10 Days #30 tab 02/04/18 Loratadine [Claritin 10mg Tablet] 10 mg PO DAILY #14 tab 02/07/18 predniSONE [Deltasone 10mg tablet] 10 mg PO BID 5 Days #10 tab 02/07/18 Allergies Allergy/AdvReac Type Severity Reaction Status Date / Time nitrofurantoin Allergy Severe S-ANAPHYLAX Verified 01/03/18 15:25 [From MACROBID] IS cefdinir [From OMNICEF] Allergy Mild Verified 01/03/18 15:25 clavulanic acid Allergy Mild Verified 01/03/18 15:25 [From AUGMENTIN] Sulfa (Sulfonamide Allergy Mild Verified 01/03/18 15:25 Antibiotics) [SULFA (SULFONAMIDE ANTIBIOTICS)]
[2018-02-07 04:56] VITALS: BP 110/67; PULSE 64; RESP 18; TEMP 37.1; O2SAT 98
== END 2018-02-07 05:05 | disposition home or self-care (01) ==
PROVIDERS: Emergency Provider Emergency Medicine; Family Provider Obstetrics & Gynecology; PCP Nurse Practitioner Family
DX: J04.0 Acute laryngitis (principal); F41.9 Anxiety disorder, unspecified; Z88.1 Allergy status to other antibiotic agents; Z88.2 Allergy status to sulfonamides; Z88.6 Allergy status to analgesic agent
CPT/HCPCS: 71046; 87275; 87276; 87430; 99283

== ENCOUNTER → 2021-06-15 14:44 | Outpatient (CLI) | payer MEDICAID, SELFPAY ==
[2021-06-15 15:10] LABS: Basophils # 0.1 K/mm3 (0-0.2); Basophils % 0.9 % (0.1-2.0); Eosinophils # 0.2 K/mm3 (0.0-0.4); Eosinophils % 2.3 % (0.1-12.0); Hematocrit 40.2 % (37.0-47.0); Hemoglobin 13.9 g/dL (12.2-16.2); Lymphocytes # 3.8 K/mm3 (0.7-4.5); Lymphocytes % 45.8 % (10-50); Mean Corpuscular HGB Conc 34.5 g/dL (31.8-35.4); Mean Corpuscular Hemoglobin 31.3 pg (27.0-31.2); Mean Corpuscular Volume 90.8 fl (81-99); Mean Platelet Volume 8.1 fl (7.4-10.4); Monocytes # 0.5 K/mm3 (0.1-1.0); Monocytes % 6.2 % (1.7-9.3); Neutrophils # 3.7 K/mm3 (1.8-7.8); Neutrophils % 44.8 % (37.0-80.0); Platelet Count 287 K/mm3 (142-424); Red Blood Count 4.43 M/mm3 (4.20-5.40); Red Cell Distribution Width 12.2 % (11.5-17.5); White Blood Count 8.2 K/mm3 (4.8-10.8)
[2021-06-15 15:35] LABS: Creatine Kinase 31 U/L (30-135)
[2021-06-15 16:43] LABS: Vitamin B12 310 pg/mL (239-931)
[2021-06-15 17:07] LABS: Folate 4.73 ng/mL
[2021-06-18 06:05] LABS: Zinc 80 ug/dL (44-115)
== END ==
PROVIDERS: Visit Provider Specialist
DX: R53.1 Weakness (principal)
CPT/HCPCS: 36415; 82525; 82550; 82607; 82746; 84630; 85025; 86618

== ENCOUNTER → 2021-06-26 07:46 | Outpatient (CLI) | payer MEDICAID, SELFPAY ==
--- NOTE | 2021-06-26 07:47 | MR_ITS ---
PROCEDURE: MR CERVICAL SPINE WO CON CLINICAL INDICATION: weakness, numbness x 4 limbs Right-sided neck pain and headache COMPARISON: No exams were available for comparison TECHNIQUE: Standard multiplanar multiecho sequences are performed without contrast. 3-D MIP and myelographic images are also rendered and reviewed FINDINGS: There is normal alignment. Craniocervical junction has an unremarkable appearance. No disc herniation or canal stenosis. No foraminal narrowing. There is slight decrease in the disc spaces with minimal disc desiccation. Degenerative disc disease also noted at T2-T3. No significant disc bulge is. No fracture or dislocation. No bony destructive changes. IMPRESSION: Minimal degenerative change. Otherwise negative Dictated by: Edgardo Andersen MD 06/27/2021 10:12 Edgardo Andersen MD in [facility] 06/27/2021 10:12
== END ==
PROVIDERS: PCP Nurse Practitioner Family; Visit Provider Specialist
DX: R53.1 Weakness (principal); R20.0 Anesthesia of skin; R20.2 Paresthesia of skin; M54.2 Cervicalgia
CPT/HCPCS: 72141; 76376

== ENCOUNTER 2021-07-06 01:42 | Emergency (ER) | payer MEDICAID, SELFPAY ==
[2021-07-06 01:54] VITALS: BP 000/00; PULSE 0; RESP 0; TEMP -17.7; TEMP 0; O2SAT 0
== END 2021-07-06 01:58 | disposition left against medical advice (07) ==
LOC: ER 01:48
PROVIDERS: Emergency Provider Emergency Medicine; PCP Nurse Practitioner Family
DX: Z53.21 Procedure and treatment not carried out due to patient leaving prior to being seen by health care provider (principal)
CPT/HCPCS: 99211

== ENCOUNTER 2021-12-23 06:09 | Emergency (ER) | payer MEDICAID, SELFPAY ==
[2021-12-23 06:10] VITALS: BP 134/78; PULSE 81; RESP 20; TEMP 36.8; O2SAT 100; BMI 13.8
--- NOTE | 2021-12-23 06:33 | HMH.EDDENT ---
ED Disposition Clinical Impression: Pain, dental, Infected dental caries Disposition: Home, Self-Care Condition on Discharge: Good Instructions: DI for Dental Pain Additional Instructions: see dentist asael and see pcp and use meds as directed Prescriptions: clindamycin HCL [Clindamycin HCl] 300 mg PO TID #30 cap Transmission Status: Sent to [facility] Referrals: Princess Durbin [Primary Care Provider] - - Critical Care Critical Care Time: No Attestation: On 12/23/21, the high probability of a clinically significant, sudden or life threatening deterioration of the following system(s) required my full and direct attention, intervention and personal management. The time I documented below is in addition to time spent performing reported procedures but includes the following listed in this critical care notation. Medical Decision Making - Medical Records Medical records reviewed: Yes: I reviewed the patient's medical records. - Anthony Inquiry Pt receiving controlled substance: No Vital Signs: 12/23/21 06:10 Temperature 98.3 F Temperature Source Oral Pulse Rate [Right] 81 Respiratory Rate 20 Blood Pressure [Right Arm] 134/78 Blood Pressure Mean [Right Arm] 96 Blood Pressure Source [Right Arm] Automatic Cuff 02 Sat by Pulse Oximetry 100 Oxygen Delivery Method Room Air Orders (Tests/Meds): ED MEDICATIONS Generic Name Dose Route Start Last Admin Trade Name Freq PRN Reason Stop Dose Admin Benzocaine/Butamben/Tetracaine HCl 1 gm 12/23/21 06:32 Tetracaine/Benzocaine/Butamben 56 Gm [place] TP 01/22/22 06:31 NEEDED PRN dental Discontinued Medications Generic Name Dose Route Start Last Admin Trade Name Freq PRN Reason Stop Dose Admin Acetaminophen/Codeine Phosphate 1 henry 12/23/21 06:43 Acetaminophen 300mg W/Codeine 30mg Take Home Pack (6) PO 12/23/21 06:44 ONCE ONE Clindamycin HCl 300 mg 12/23/21 06:43 Clindamycin 150mg Capsule PO 12/23/21 06:44 ONCE ONE Lidocaine HCl 15 ml 12/23/21 06:32 Lidocaine Viscous 100ml Bottle PO 12/23/21 06:33 ONCE ONE Medical Decision Narrative: has sig dental caries and painful lt lower molar - please see dentist asael Dental HPI - General Chief complaint: Dental/Oral Stated complaint: Toothache Time Seen by Provider: 12/23/21 06:33 Mode of Arrival: Family Vehicle Source of Information: Patient, Medical Record Limitations: No Limitations Description of Symptoms (Recalled from ER Triage Doc. by RN): Pt c/o tooth pain to lower left 2nd molar. Part of the tooth is missing from decay. She reports she saw her dentist in [facility] about 1-2 mn ago and was supposed to schedule with dentistry to have all her lower teeth removed. But, her teeth were not bothering her at the time. She reports the pain began 3 days ago and is unbearable at this time. Denies fever or chills. - History of Present Illness HPI Narrative: acute exacerbation of lt lower dental pain - no fever or abscess MD Complaint: tooth pain Onset (ago): day(s) Duration: constant Severity: moderate Relieving factors: NSAIDs Context: history of dental caries, poor dental care Treatment prior to arrival: none - Related Data Home Medications Medication Instructions Recorded Confirmed hydrOXYzine pamoate [Vistaril] 25 mg PO TID 11/22/17 08/10/21 polyethylene glycol 3350 17 17 g PO BID g 06/15/21 08/10/21 gram/dose oral powder amoxicillin 400 mg/5 mL oral 400 mg PO BID ml 08/10/21 08/10/21 suspension cetirizine 1 mg/mL oral solution 10 mg PO DAILY PRN 08/10/21 08/10/21 metoprolol succinate 25 mg 25 mg PO DAILY tab 08/10/21 08/10/21 tablet,extended release 24 hr Previous Rx's Medication Instructions Recorded cyproheptadine 4 mg tablet 8 mg PO HS #60 tab NS 08/10/21 clindamycin HCL [Clindamycin HCl] 300 mg PO TID #30 cap 12/23/21 Allergies Allergy/AdvReac Type Severity Reaction Status Date / Time nitrofuranto
[2021-12-23 06:54] VITALS: BP 129/82; PULSE 80; RESP 20; TEMP 36.8; O2SAT 99
== END 2021-12-23 07:08 | disposition home or self-care (01) ==
PROVIDERS: Emergency Provider Emergency Medicine; PCP Nurse Practitioner Family
DX: K02.9 Dental caries, unspecified (principal); I10 Essential (primary) hypertension
CPT/HCPCS: 99281

== ENCOUNTER 2021-12-25 22:26 | Emergency (ER) | payer MEDICAID, SELFPAY ==
[2021-12-25 22:22] VITALS: BP 115/69; PULSE 73; RESP 16; TEMP 37.1; O2SAT 100; BMI 13.8
--- NOTE | 2021-12-25 23:01 | HMH.EDDENT ---
ED Disposition Clinical Impression: Pain, dental, Infected dental caries Disposition: Home, Self-Care Condition on Discharge: Good Instructions: DI for Dental Pain Additional Instructions: see dentist and use meds Prescriptions: Ketorolac Tromethamine [Toradol 10mg tablet] 10 mg PO Q6HP PRN #10 tab MDD 40mg/day PRN Reason: Moderate To Severe Pain Transmission Status: Pending to [facility] Referrals: Princess Durbin [Primary Care Provider] - - Critical Care Critical Care Time: No Attestation: On 12/25/21, the high probability of a clinically significant, sudden or life threatening deterioration of the following system(s) required my full and direct attention, intervention and personal management. The time I documented below is in addition to time spent performing reported procedures but includes the following listed in this critical care notation. Medical Decision Making - Medical Records Medical records reviewed: Yes: I reviewed the patient's medical records. - Anthony Inquiry Pt receiving controlled substance: No Vital Signs: 12/25/21 22:22 Temperature 98.8 F Temperature Source Oral Pulse Rate [Left Radial] 73 Respiratory Rate 16 Blood Pressure [Right Arm] 115/69 Blood Pressure Mean [Right Arm] 84 Blood Pressure Source [Right Arm] Automatic Cuff 02 Sat by Pulse Oximetry 100 Oxygen Delivery Method Room Air - Lab Data Lab results reviewed: Yes: I reviewed the patient's lab results. Orders (Tests/Meds): ED MEDICATIONS Generic Name Dose Route Start Last Admin Trade Name Freq PRN Reason Stop Dose Admin Benzocaine/Butamben/Tetracaine HCl 1 gm 12/25/21 22:37 12/25/21 22:38 Tetracaine/Benzocaine/Butamben 56 Gm [place] TP 01/24/22 22:36 1 gm NEEDED PRN Administration Toothache Discontinued Medications Generic Name Dose Route Start Last Admin Trade Name Freq PRN Reason Stop Dose Admin Ketorolac Tromethamine 30 mg 12/25/21 22:53 12/25/21 22:55 Ketorolac 30mg/Ml Vial IM 12/25/21 22:54 30 mg ONCE ONE Administration Lidocaine HCl 15 ml 12/25/21 22:34 12/25/21 22:37 Lidocaine 2% Viscous Lisa 15ml Udc PO 12/25/21 22:35 15 ml ONCE ONE Administration Medical Decision Narrative: please see dentist and use abx and pain meds as directed Dental HPI - General Chief complaint: Dental/Oral Stated complaint: tooth abcess Time Seen by Provider: 12/25/21 23:01 Mode of Arrival: EMS Source of Information: Patient, EMS, Medical Record Limitations: No Limitations Description of Symptoms (Recalled from ER Triage Doc. by RN): PT WAS SEEN IN ED FOR DENTAL PAIN TWO DAYS AGO AND WAS GIVEN ANTIBIOTICS AND PAIN MEDS. PT REPORTS THAT SHE IS OUT OF PAIN MEDICATIONS AND IS HAVING PAIN. PT REPORTS HER LEFT BACK MOLAR IS THE CAUSE OF HER PAIN. SHE HAS NOT BEEN TO THE DENTIST BUT STATES SHE DOES HAVE AN APPT SCHEDULED. - History of Present Illness HPI Narrative: has ongoing dental pain and has seen dentist and has [place] consult pending - has increased pain tonight Complaint: tooth pain Onset (ago): day(s) Duration: constant Severity: moderate Relieving factors: prescription analgesics Context: history of dental caries, poor dental care Treatment prior to arrival: topical analgesic, recent dentist visit - Related Data Home Medications Medication Instructions Recorded Confirmed hydrOXYzine pamoate [Vistaril] 25 mg PO TID 11/22/17 08/10/21 polyethylene glycol 3350 17 17 g PO BID g 06/15/21 08/10/21 gram/dose oral powder amoxicillin 400 mg/5 mL oral 400 mg PO BID ml 08/10/21 08/10/21 suspension cetirizine 1 mg/mL oral solution 10 mg PO DAILY PRN 08/10/21 08/10/21 metoprolol succinate 25 mg 25 mg PO DAILY tab 08/10/21 08/10/21 tablet,extended release 24 hr Previous Rx's Medication Instructions Recorded cyproheptadine 4 mg tablet 8 mg PO HS #60 tab NS 08/10/21 clindamycin HCL [Clindamycin HCl] 300 mg PO TID #30 cap 12/23/21 Janis
[2021-12-25 23:35] VITALS: BP 102/65; PULSE 78; RESP 16; TEMP 36.7; O2SAT 99
== END 2021-12-25 23:38 | disposition home or self-care (01) ==
PROVIDERS: Emergency Provider Emergency Medicine; PCP Nurse Practitioner Family
DX: K02.9 Dental caries, unspecified; I10 Essential (primary) hypertension; F41.9 Anxiety disorder, unspecified; F32.A Depression, unspecified
CPT/HCPCS: 96372; 99281

== ENCOUNTER 2022-10-08 06:24 | Emergency (ER) | payer MEDICAID, SELFPAY ==
[2022-10-08 06:24] VITALS: BP 131/94; PULSE 107; RESP 16; TEMP 37.2; O2SAT 100; BMI 15.0
--- NOTE | 2022-10-08 06:37 | PC.NURSE ---
as pt was walking back from the bathroom, she began to c/o chest pain. EKG and labs now will be obtained
--- NOTE | 2022-10-08 06:39 | ECG_ITS ---
APPROVED REPORT Exam: Resting ECG HR:63 bpm ECG Measurements Heart Rate 63 AXES WI 122 P 59 QRSd 98 QRS 79 QT 380 T 61 QTc 388 Conclusion SINUS RHYTHM POSSIBLE RIGHT VENTRICULAR CONDUCTION DELAY [RSR (QR) IN V1/V2] BORDERLINE ECG UNCONFIRMED REPORT Electronically signed by : Uriel Wayne MD 10/08/2022 16:22:09
--- NOTE | 2022-10-08 06:45 | XR_ITS ---
FINAL REPORT CLINICAL HISTORY: chest pain COMPARISON: 12/10/2018 FINDINGS: Two views of the chest were obtained. The heart size and pulmonary vascularity are within normal limits. The mediastinum is normal. No acute pulmonary abnormality is identified. There is no pneumothorax. The bony thorax is intact. IMPRESSION: No active cardiopulmonary disease. Reviewed, Interpreted and Dictated by Brayan Torres III, MD Transcribed by Annette Ferrera Authenticated and [facility]
[2022-10-08 06:57] LABS: Microscopic, Urine URINE MICROSCOPIC (MICROSCOPIC)
[2022-10-08 07:04] LABS: Basophils # 0.1 K/mm3 (0-0.2); Basophils % 1.4 % (0.1-2.0); Eosinophils # 0.2 K/mm3 (0.0-0.4); Eosinophils % 1.9 % (0.1-12.0); Hematocrit 41.6 % (37.0-47.0); Hemoglobin 13.8 g/dL (12.2-16.2); Lymphocytes # 2.1 K/mm3 (0.7-4.5); Lymphocytes % 25.2 % (10-50); Mean Corpuscular Hemoglobin 30.8 pg (27.0-31.2); Mean Corpuscular Volume 93.2 fl (81-99); Mean Platelet Volume 8.5 fl (7.4-10.4); Monocytes # 0.5 K/mm3 (0.1-1.0); Monocytes % 5.5 % (1.7-9.3); Neutrophils # 5.4 K/mm3 (1.8-7.8); Platelet Count 358 K/mm3 (142-424); Red Blood Count 4.47 M/mm3 (4.20-5.40); Red Cell Distribution Width 12.3 % (11.5-17.5); White Blood Count 8.3 K/mm3 (4.8-10.8)
[2022-10-08 07:09] LABS: Anion Gap 23.8 mEq/L (5-15); Blood Urea Nitrogen 10 mg/dl (7-17); Calcium 10.3 mg/dl (8.4-10.2); Carbon Dioxide 26 mmol/L (22.0-30.0); Chloride 96 mmol/L (98-107); Creatinine Clearance Estimated 70 mL/min (50-200); Estimated Glomerular Filt Rate 101 ml/min (>60); GFR (African American) 122 ML/MIN (>60); Glucose 100 mg/dl (74-100); Potassium 3.8 mmoL/L (3.5-5.1); Sodium 142 mmol/L (136-145)
[2022-10-08 07:10] LABS: Appearance,Urine CLOUDY (Clear); Bilirubin,Urine Negative (Negative); Blood, Urine 3+ (Negative); Color,Urine YELLOW (Yellow); Glucose,Urine (UA) Negative (Negative); Ketones,Urine Negative (Negative); Leukocyte Esterase,Urine Negative (Negative); Nitrate,Urine Negative (Negative); Protein,Urine Negative (Negative); Urobilinogen,Urine 0.2 EU/dl (0.2)
[2022-10-08 07:12] LABS: Urine Pregnancy, HCG Qual. Negative (Negative)
[2022-10-08 07:24] LABS: Troponin I < 0.01 ng/ml (0.00-0.034)
[2022-10-08 07:28] LABS: Amorphous Sediment,Urine 3+ /lpf
[2022-10-08 07:29] LABS: Bacteria,Urine 2+ /lpf
[2022-10-08 07:30] LABS: WBC,Urine Occasional #/hpf (0-3)
--- NOTE | 2022-10-08 07:55 | HMH.EDCP ---
Discharge Plan Disposition Chief Complaint: Chest Pain Prescriptions Prescriptions: No Action polyethylene glycol 3350 17 gram/dose powder 17 g PO BID Label Comments: MIX 17 GRAMS IN 8 OUNCES OF WATER AND DRINK ONCE A DAY. metoprolol succinate 25 mg tablet extended release 24 hr 25 mg PO DAILY Label Comments: TAKE 1 TABLET 1 TIME EACH DAY amoxicillin 400 mg/5 mL suspension for reconstitution 400 mg PO BID Label Comments: TAKE 11 ML EVERY 12 HOURS FOR 10 DAYS. cetirizine [Children's Zyrtec Allergy] 1 mg/mL solution 10 mg PO DAILY PRN cyproheptadine 4 mg tablet 8 mg PO HS Qty: 60 6RF Rx Instructions: Indication: Migraine prophylaxis. may cause drowsiness, sleepiness. Do not drive if drowsiness, sleepiness is present. hydroxyzine pamoate 25 MG capsule 25 mg PO TID clindamycin HCl 300 MG capsule 300 mg PO TID Qty: 30 0RF ketorolac 10 MG tablet 10 mg PO Q6HP MDD 40mg/day PRN (Reason: Moderate To Severe Pain) Qty: 10 0RF Rx Instructions: Therapy initiated with IV/IM dose Referrals Follow up/Referrals: Provider,Referral, MD [Primary Care Provider] - See instructions Discharge ED Provider: Chadwick Benoit Chest Pain HPI General Chief Complaint: Chest Pain Stated Complaint: L Arm Pain Time Seen by Provider: 10/08/22 07:46 Mode of Arrival: EMS Source of Information: Patient Limitations: No Limitations Description of Symptoms (Recalled from ER Triage Doc. by RN): pt states she has pain in the left lower arm that the pt states its in the vein and she has pain in the thumb worst of all. the pt stated that the pain is coming as the vein gets looser and tighter. pt states there was no injury and this started about 5 hours ago. pt is also reporting chest pain History of Present Illness HPI narrative: Patient presents complaining principally of chest discomfort. Pain began approxi-1 hour prior to my assessment when she was driving to the hospital to be evaluated for left arm discomfort. She describes her discomfort as moderate and worse with standing up. Related Data Home Medications Medication Instructions Recorded Confirmed hydroxyzine pamoate 25 mg capsule 25 mg PO TID Anxiety 11/22/17 08/10/21 polyethylene glycol 3350 17 17 g PO BID 06/15/21 08/10/21 gram/dose oral powder amoxicillin 400 mg/5 mL oral 400 mg PO BID 08/10/21 08/10/21 suspension cetirizine 1 mg/mL oral solution 10 mg PO DAILY PRN 08/10/21 08/10/21 (Children's Zyrtec Allergy) metoprolol succinate 25 mg 25 mg PO DAILY 08/10/21 08/10/21 tablet,extended release 24 hr Previous Rx's Medication Instructions Recorded cyproheptadine 4 mg tablet 8 mg PO HS #60 tabs 08/10/21 clindamycin HCl 300 mg capsule 300 mg PO TID #30 caps 12/23/21 ketorolac 10 mg tablet 10 mg PO Q6HP PRN Moderate To 12/25/21 Severe Pain #10 tabs Allergies Allergy/AdvReac Type Severity Reaction Status Date / Time nitrofurantoin Allergy Severe S-ANAPHYLAX Verified 08/10/21 08:11 [From MACROBID] IS cefdinir [From OMNICEF] Allergy Mild Verified 08/10/21 08:11 clavulanic acid Allergy Mild Verified 08/10/21 08:11 [From AUGMENTIN] Sulfa (Sulfonamide Allergy Mild Verified 08/10/21 08:11 Antibiotics) [SULFA (SULFONAMIDE ANTIBIOTICS)] azithromycin [AZITHROMYCIN] Allergy Unknown Verified 08/10/21 08:11 hydrocodone [From LORTAB] Allergy Unknown Verified 08/10/21 08:11 [facility] Social History Smoking Status: Never smoker second hand exposure: Yes alcohol intake: never substance use type: former substance user and marijuana current occupational status: disabled Travel in the last 8 weeks: None household members: other housing: apartment caffeine: Yes ROS Obtained: Yes All systems reviewed & no additional complaints except as documented Physical Exam General General appearance: alert and other (Appears
[2022-10-08 08:09] LABS: D-Dimer 0.52 ug/mL (0.0-0.5)
--- NOTE | 2022-10-08 08:25 | CT_ITS ---
FINAL REPORT TECHNIQUE: Then section axial CT images of the chest were obtained with contrast. Three-D reformatted images were also obtained.This study was performed with techniques to keep radiation doses as low as reasonably achievable (ALARA). Individualized dose reduction techniques using automated exposure control or adjustment of mA and/or kV according to the patient''s size were employed. CLINICAL HISTORY: cp/soa FINDINGS: There is motion on many of the images which significantly decreases the sensitivity of the exam. Many of the smaller pulmonary artery branches are obscured by motion. No large central pulmonary embolism is identified. There is no evidence of thoracic aortic aneurysm or dissection. There is no evidence of mediastinal or hilar mass or adenopathy. There is no evidence of pulmonary mass or suspicious nodule. No localized inflammatory process is seen within the lungs. Limited images of the upper abdomen are unremarkable. IMPRESSION: Motion on many of the images obscures the detail the smaller pulmonary artery branches. No large central pulmonary embolism identified. No mass or localized inflammatory process. Reviewed, Interpreted and Dictated by Brayan Torres III, MD Transcribed by Annette Ferrera Authenticated and . [facility]
[2022-10-08 08:38] LABS: Amphetamine/Metha Screen,Urine Negative ng/ml (<1000); Benzodiazepines Screen,Urine Negative ng/ml (<200)
[2022-10-08 08:39] LABS: Barbiturates Screen,Urine Negative ng/ml (<200)
[2022-10-08 08:40] LABS: Cannabinoid Screen,Urine Negative ng/ml (<50); Cocaine Screen,Urine Negative ng/ml (<300)
[2022-10-08 08:41] LABS: Methadone Screen,Urine Negative ng/ml (<300)
[2022-10-08 08:42] LABS: Opiate Screen,Urine Negative ng/ml (<300); Phencyclidine Screen,Urine Negative ng/ml (<25)
[2022-10-08 08:48] VITALS: BP 123/82; PULSE 76; RESP 18; O2SAT 97
[2022-10-08 09:59] VITALS: BP 103/62; PULSE 89; RESP 20; O2SAT 100
--- NOTE | 2022-10-08 10:31 | PC.NURSE ---
contacted lab to check on status of troponin result, staff states will be approx 15 minutes until results, notified ER
[2022-10-08 10:34] LABS: Troponin I < 0.01 ng/ml (0.00-0.034)
[2022-10-08 10:44] VITALS: BP 107/86; PULSE 63; RESP 16; TEMP 37.2; O2SAT 97
== END 2022-10-08 10:44 | disposition home or self-care (01) ==
PROVIDERS: Emergency Medicine; Emergency Provider Emergency Medicine
DX: R09.1 Pleurisy (principal); F12.11 Cannabis abuse, in remission; Z87.898 Personal history of other specified conditions; Z88.1 Allergy status to other antibiotic agents; Z88.2 Allergy status to sulfonamides; Z88.6 Allergy status to analgesic agent
CPT/HCPCS: 36415; 71046; 71275; 80048; 80305; 81001; 81025; 84484; 85025; 85378; 87086; 93005; 99285; Q9967

== ENCOUNTER 2022-10-09 22:24 | Emergency (ER) | payer MEDICAID, SELFPAY ==
[2022-10-09 22:25] VITALS: BP 122/92; PULSE 84; RESP 18; TEMP 36.6; O2SAT 100; BMI 15.0
--- NOTE | 2022-10-09 22:29 | PC.NURSE ---
Dr. Bird at
--- NOTE | 2022-10-09 22:45 | ECG_ITS ---
APPROVED REPORT Exam: Resting ECG HR:63 bpm ECG Measurements Heart Rate 63 AXES MI 116 P 39 QRSd 98 QRS 74 QT 389 T 35 QTc 397 Conclusion SINUS RHYTHM WITH SHORT MI INTERVAL POSSIBLE RIGHT VENTRICULAR CONDUCTION DELAY [RSR (QR) IN V1/V2] BORDERLINE ECG UNCONFIRMED REPORT Electronically signed by : Uriel Wayne MD 10/10/2022 14:55:23
[2022-10-09 23:00] VITALS: BP 106/73; PULSE 74; RESP 15; O2SAT 99
--- NOTE | 2022-10-09 23:04 | HMH.EDCP ---
Discharge Plan Disposition Patient Disposition: Home, Self-Care Chief Complaint: Chest Pain Prescriptions Prescriptions: No Action polyethylene glycol 3350 17 gram/dose powder 17 g PO BID Label Comments: MIX 17 GRAMS IN 8 OUNCES OF WATER AND DRINK ONCE A DAY. metoprolol succinate 25 mg tablet extended release 24 hr 25 mg PO DAILY Label Comments: TAKE 1 TABLET 1 TIME EACH DAY amoxicillin 400 mg/5 mL suspension for reconstitution 400 mg PO BID Label Comments: TAKE 11 ML EVERY 12 HOURS FOR 10 DAYS. cetirizine [Children's Zyrtec Allergy] 1 mg/mL solution 10 mg PO DAILY PRN cyproheptadine 4 mg tablet 8 mg PO HS Qty: 60 6RF Rx Instructions: Indication: Migraine prophylaxis. may cause drowsiness, sleepiness. Do not drive if drowsiness, sleepiness is present. hydroxyzine pamoate 25 MG capsule 25 mg PO TID clindamycin HCl 300 MG capsule 300 mg PO TID Qty: 30 0RF ketorolac 10 MG tablet 10 mg PO Q6HP MDD 40mg/day PRN (Reason: Moderate To Severe Pain) Qty: 10 0RF Rx Instructions: Therapy initiated with IV/IM dose Referrals Follow up/Referrals: Macey Irizarry APRN [Primary Care Provider] - See instructions Clinical Impressions Clinical Impression: Atypical chest pain Instructions Patient Instructions: DI for Atypical Chest Pain Discharge ED Provider: Fede Bird Chest Pain HPI General Chief Complaint: Chest Pain Stated Complaint: chest pain Time Seen by Provider: 10/09/22 23:04 Mode of Arrival: Ambulatory Source of Information: Patient, Parent(s) and Medical Record Limitations: No Limitations Description of Symptoms (Recalled from ER Triage Doc. by RN): pt arrived today c/o chest pain since 530 pm today the pt states that she has pain in the left ribcage 6/10 and pain with inspiration 8/10. the pt also states that she has a swollen left knee History of Present Illness HPI narrative: pt with lt upper ext pain and has chest pain to lt upper ext w/o cough - was seen in ed and had neg eval and has pending appt with card tuesday - no tob or rash and no trauma or ivdu - MD complaint: chest pain Onset (ago): hour(s) Duration: intermittent Activity at onset: during rest Pain location: left chest Severity: moderate Quality: sharp Pain radiation: LUE Risk Factors for CAD: Family Hx of CAD BANDAR Score for Non-Stemi Age of Patient: <30 years old Heart Rate: 50-69 bpm Systolic Blood Pressure: 100-119 mmHg Serum Creatinine: 0.40-0.79 mg/dl CHF [place] Class: I-No CHF Other Risk Factors: None Non-Stemi Risk Score: 50 Related Data Home Medications Medication Instructions Recorded Confirmed hydroxyzine pamoate 25 mg capsule 25 mg PO TID Anxiety 11/22/17 08/10/21 polyethylene glycol 3350 17 17 g PO BID 06/15/21 08/10/21 gram/dose oral powder amoxicillin 400 mg/5 mL oral 400 mg PO BID 08/10/21 08/10/21 suspension cetirizine 1 mg/mL oral solution 10 mg PO DAILY PRN 08/10/21 08/10/21 (Children's Zyrtec Allergy) metoprolol succinate 25 mg 25 mg PO DAILY 08/10/21 08/10/21 tablet,extended release 24 hr Previous Rx's Medication Instructions Recorded cyproheptadine 4 mg tablet 8 mg PO HS #60 tabs 08/10/21 clindamycin HCl 300 mg capsule 300 mg PO TID #30 caps 12/23/21 ketorolac 10 mg tablet 10 mg PO Q6HP PRN Moderate To 12/25/21 Severe Pain #10 tabs Allergies Allergy/AdvReac Type Severity Reaction Status Date / Time nitrofurantoin Allergy Severe S-ANAPHYLAX Verified 08/10/21 08:11 [From MACROBID] IS cefdinir [From OMNICEF] Allergy Mild Verified 08/10/21 08:11 clavulanic acid Allergy Mild Verified 08/10/21 08:11 [From AUGMENTIN] Sulfa (Sulfonamide Allergy Mild Verified 08/10/21 08:11 Antibiotics) [SULFA (SULFONAMIDE ANTIBIOTICS)] azithromycin [AZITHROMYCIN] Allergy Unknown Verified 08/10/21 08:11 hydrocodone [From LORTAB] Allergy Unknown Verified 08/10/21 08:11 [facility] Social History
[2022-10-09 23:14] LABS: Basophils % 0.4 % (0.1-2.0); Eosinophils # 0.1 K/mm3 (0.0-0.4); Eosinophils % 0.5 % (0.1-12.0); Hematocrit 41.3 % (37.0-47.0); Hemoglobin 13.3 g/dL (12.2-16.2); Lymphocytes # 1.8 K/mm3 (0.7-4.5); Lymphocytes % 19.2 % (10-50); Mean Corpuscular HGB Conc 32.1 g/dL (31.8-35.4); Mean Corpuscular Hemoglobin 30.8 pg (27.0-31.2); Mean Corpuscular Volume 95.9 fl (81-99); Mean Platelet Volume 8.8 fl (7.4-10.4); Monocytes # 0.5 K/mm3 (0.1-1.0); Monocytes % 4.8 % (1.7-9.3); Platelet Count 322 K/mm3 (142-424); Red Blood Count 4.31 M/mm3 (4.20-5.40); Red Cell Distribution Width 11.8 % (11.5-17.5); White Blood Count 9.3 K/mm3 (4.8-10.8)
[2022-10-09 23:18] LABS: Alanine Aminotransferase 23 U/L (12-78); Albumin Level 5.1 g/dl (3.5-5.0); Albumin/Globulin Ratio 1.5 (1.1-1.8); Alkaline Phosphatase 85 U/L (38-126); Anion Gap 22.6 mEq/L (5-15); Aspartate Amino Transferase 32 U/L (14-36); Bilirubin,Total 0.8 mg/dl (0.2-1.3); Blood Urea Nitrogen 10 mg/dl (7-17); Calcium 10.1 mg/dl (8.4-10.2); Carbon Dioxide 25 mmol/L (22.0-30.0); Chloride 96 mmol/L (98-107); Creatinine Clearance Estimated 70 mL/min (50-200); Estimated Glomerular Filt Rate 101 ml/min (>60); GFR (African American) 122 ML/MIN (>60); Globulin 3.4 g/dL (1.3-3.2); Glucose 99 mg/dl (74-100); Potassium 3.6 mmoL/L (3.5-5.1); Sodium 140 mmol/L (136-145); Total Protein,Serum 8.5 g/dl (6.3-8.2)
[2022-10-09 23:23] LABS: C-Reactive Protein 0.6 mg/L (0-4)
[2022-10-09 23:33] LABS: Troponin I < 0.01 ng/ml (0.00-0.034)
[2022-10-09 23:37] LABS: Procalcitonin < 0.030 ng/mL (0.0-2.0)
[2022-10-09 23:43] LABS: Erythrocyte Sedimentation Rate 11 mm/hr (0-20)
[2022-10-10 00:06] VITALS: BP 110/74; PULSE 72; RESP 16; TEMP 36.6; O2SAT 99
== END 2022-10-10 00:08 | disposition home or self-care (01) ==
PROVIDERS: Emergency Provider Emergency Medicine; PCP Nurse Practitioner
DX: R07.89 Other chest pain (principal); M25.462 Effusion, left knee; Z79.899 Other long term (current) drug therapy; Z88.1 Allergy status to other antibiotic agents; Z88.2 Allergy status to sulfonamides; Z88.6 Allergy status to analgesic agent; F41.9 Anxiety disorder, unspecified; F12.11 Cannabis abuse, in remission; F19.11 Other psychoactive substance abuse, in remission
CPT/HCPCS: 80053; 84145; 84484; 85025; 85651; 86140; 93005; 96365; 99284

== ENCOUNTER 2023-05-24 16:26 | Emergency (ER) | payer MEDICAID, SELFPAY ==
[2023-05-24 16:26] VITALS: BP 121/59; PULSE 82; RESP 17; TEMP 36.8; O2SAT 100; BMI 14.1
--- NOTE | 2023-05-24 16:38 | PC.NURSE ---
ER MD Tovar at
--- NOTE | 2023-05-24 16:45 | XR_ITS ---
PROCEDURE INFORMATION: Exam: XR Right Knee Exam date and time: 05/24/2023 4:48 PM Age: 28 years old Clinical indication: Pain; Knee; Right; Additional info: Knee pain and swelling TECHNIQUE: Imaging protocol: Radiologic exam of the right knee. Views: 3 views. COMPARISON: CR [id number] XR knee RT 3V 10/25/2018 10:26 AM FINDINGS: Bones/joints: Large suprapatellar effusion. Findings may be inflammatory in etiology. Soft tissues: Normal. Other findings: 12 mm loose body anterior to the femoral condyles intercondylar notch. IMPRESSION: 1. No evidence of acute osseous injury. 2. Large suprapatellar effusion. Findings may be inflammatory in etiology. 3. 12 mm loose body anterior to the femoral condyles and intercondylar notch. 4. Recommend follow-up with magnetic resonance imaging to further evaluate for possible osteochondral defect, meniscal as well as ligamentous injury.
--- NOTE | 2023-05-24 16:47 | HMH.EDGENADL ---
Discharge Plan Disposition Chief Complaint: Extremity Injury, Lower Prescriptions Prescriptions: No Action polyethylene glycol 3350 17 gram/dose powder 17 g PO BID Patient Comments: MIX 17 GRAMS IN 8 OUNCES OF WATER AND DRINK ONCE A DAY. metoprolol succinate 25 mg tablet extended release 24 hr 25 mg PO DAILY Patient Comments: TAKE 1 TABLET 1 TIME EACH DAY amoxicillin 400 mg/5 mL suspension for reconstitution 400 mg PO BID Patient Comments: TAKE 11 ML EVERY 12 HOURS FOR 10 DAYS. cetirizine [Children's Zyrtec Allergy] 1 mg/mL solution 10 mg PO DAILY PRN cyproheptadine 4 mg tablet 8 mg PO HS Qty: 60 6RF Rx Instructions: Indication: Migraine prophylaxis. may cause drowsiness, sleepiness. Do not drive if drowsiness, sleepiness is present. hydroxyzine pamoate 25 MG capsule 25 mg PO TID clindamycin HCl 300 MG capsule 300 mg PO TID Qty: 30 0RF ketorolac 10 MG tablet 10 mg PO Q6HP MDD 40mg/day PRN (Reason: Moderate To Severe Pain) Qty: 10 0RF Rx Instructions: Therapy initiated with IV/IM dose Referrals Follow up/Referrals: Riki Amador DO [Staff Physician] - See instructions (intra-articular bony fragment likely from patellar reduction, may need scope; also joint effusion out of proportion to this injury and may have associated ligamental injury ) Macey Irizarry APRN [Primary Care Provider] - See instructions Activity Restrictions/Add. Instructions Additional Instructions/Restrictions: Please follow-up with Dr. Amador next available appointment for further evaluation. On your x-ray there was an intra-articular bony fragment likely secondary to your patellar dislocation which she reduced. This may be the source of your joint effusion however you may also have an associated ligamental injury. This can be worked up further possibly by an outpatient MRI but she will need orthopedic surgery discussion for further evaluation and treatment. You may bear weight as tolerated and take ibuprofen as needed for your symptoms and may additionally use ice and compression for symptomatic control. Return with any worsening symptoms. Clinical Impressions Clinical Impression: Strain of right knee, Effusion of right knee, Closed patellar dislocation, Intra-articular loose body Discharge ED Provider: Joseph Tovar General [facility] General Chief complaint: Extremity Injury, Lower Stated complaint: KNEE PAIN Time Seen by Provider: 05/24/23 16:36 Mode of Arrival: EMS Limitations: No Limitations Description of Symptoms (Recalled from ER Triage Doc. by RN): pt to ED with right knee pain since last night. pt reports last night she went to twist to the left when she felt her right knee pop in and out pf place followed by swelling at the joint. pt reports she has had this happen multiple times before with both of her knees. History of Present Illness HPI narrative: Patient is a 28-year-old female chronically malnourished and cachectic presenting with right knee pain. She states that her malnourishment and her size is chronic and has been this way since she has been a child and that she is followed up with many doctors and no formal diagnosis has been given to her. She presents to the emergency department today for acute right knee pain. 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 However this happened yesterday to her right knee and she subsequently developed significant swelling in that right knee where it was 4 times bigger than normal size . There is no preceding fever or erythema or warmth prior to this injury. Additionally she was followed by an orthopedic surgeon in [place] who recommended bilateral knee replacements in the past which she did not follow-up on. Related Data Home Medications Medication Instructions Recorded Confirmed hydroxyzine pamoate 25 mg capsule 25 mg PO TID Anxiety 11/22/1708/10
--- NOTE | 2023-05-24 16:47 | PC.NURSE ---
rad notified of xray order
--- NOTE | 2023-05-24 16:51 | PC.NURSE ---
rad at BS for portable xray
[2023-05-24 17:00] VITALS: BP 99/69; PULSE 67; O2SAT 99
[2023-05-24 17:43] VITALS: BP 127/81; PULSE 87; RESP 17; TEMP 37.1; O2SAT 98
== END 2023-05-24 17:52 | disposition home or self-care (01) ==
PROVIDERS: Emergency Provider Student in an Organized Health Care Education/Training Program; PCP Nurse Practitioner
DX: S83.004A Unspecified dislocation of right patella, initial encounter (principal); M23.41 Loose body in knee, right knee; M25.461 Effusion, right knee; X50.1XXA Overexertion from prolonged static or awkward postures, initial encounter
CPT/HCPCS: 73562; 99283; 99284

== ENCOUNTER 2024-04-08 06:21 | Emergency (ER) | payer MEDICAID, SELFPAY ==
[2024-04-08] VITALS (7 sets, daily range): BP systolic 84–118; BP diastolic 62–98; PULSE 58–70; RESP 13–20; TEMP 36.7; O2SAT 98–100; BMI 15.0; BMI 18.3
--- NOTE | 2024-04-08 06:30 | PC.NURSE ---
Pt refuses IV at this time, will wait for Dr to assess
--- NOTE | 2024-04-08 06:49 | XR_ITS ---
PROCEDURE INFORMATION: Exam: XR Chest Exam date and time: 04/08/2024 7:41 AM Age: 28 years old Clinical indication: Pain; Chest pressure; Additional info: Bilateral chest pain TECHNIQUE: Imaging protocol: Radiologic exam of the chest. Views: 2 views. COMPARISON: CT ANGIO CHEST PE PROTOCOL 10/08/2022 8:54 AM FINDINGS: Lungs: Unremarkable. No consolidation. Pleural spaces: Unremarkable. No pleural effusion. No pneumothorax. Heart/Mediastinum: Unremarkable. No cardiomegaly. Bones/joints: Unremarkable. IMPRESSION: No acute findings.
--- NOTE | 2024-04-08 06:51 | [facility].EDCP ---
Discharge Plan Disposition Patient Disposition: Home, Self-Care Condition: Good Prescriptions Prescriptions: New indomethacin 50 mg capsule 50 mg PO TID 7 Days Qty: 21 0RF Rx Instructions: administer with food or milk omeprazole 20 mg capsule,delayed release(DR/EC) 20 mg PO DAILY 28 Days Qty: 28 0RF Discontinued ketorolac 10 MG tablet 10 mg PO Q6HP MDD 40mg/day PRN (Reason: Moderate To Severe Pain) Qty: 10 0RF Rx Instructions: Therapy initiated with IV/IM dose No Action polyethylene glycol 3350 17 gram/dose powder 17 g PO BID Patient Comments: MIX 17 GRAMS IN 8 OUNCES OF WATER AND DRINK ONCE A DAY. metoprolol succinate 25 mg tablet extended release 24 hr 25 mg PO DAILY Patient Comments: TAKE 1 TABLET 1 TIME EACH DAY amoxicillin 400 mg/5 mL suspension for reconstitution 400 mg PO BID Patient Comments: TAKE 11 ML EVERY 12 HOURS FOR 10 DAYS. cetirizine [Children's Zyrtec Allergy] 1 mg/mL solution 10 mg PO DAILY PRN cyproheptadine 4 mg tablet 8 mg PO HS Qty: 60 6RF Rx Instructions: Indication: Migraine prophylaxis. may cause drowsiness, sleepiness. Do not drive if drowsiness, sleepiness is present. hydroxyzine pamoate 25 MG capsule 25 mg PO TID clindamycin HCl 300 MG capsule 300 mg PO TID Qty: 30 0RF Referrals Follow up/Referrals: Macey Irizarry APRN [Primary Care Provider] - See instructions Activity Restrictions/Add. Instructions Additional Instructions/Restrictions: As we discussed, your symptoms are concerning to me for a diagnosis called pericarditis. 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 I have additionally prescribed a acid reducing medication to limit any irritation on your stomach with this dose of NSAIDs. Your heart workup including your EKG and your heart enzyme levels were not concerning for heart attack or any other acute heart issues. It may be the case that you do not have pericarditis but after our discussion I think the benefits of treatment outweigh any potential risks. Please discontinue your aspirin while you are taking these new medications. Please return with any new or worsening symptoms. Clinical Impressions Clinical Impression: Pericarditis Discharge ED Provider: Raul Butterfield HPI <Mumtaz Souza MD - Last Filed: 04/08/24 06:59> General Chief Complaint: Chest Pain Stated Complaint: SOA Time Seen by Provider: 04/08/24 06:25 History of Present Illness HPI narrative: Patient is a 28-year-old female with past medical history of autism spectrum disorder, reported MS who presents emergency department for evaluation of chest pain. Patient was seen by PCP who was reportedly told that her lung was a little deflated on one side . Patient has had bilateral chest pain over the last 6 days, feeling as if a elephant is sitting on her chest. Due to persistent symptoms she presents here for continued evaluation. No other acute complaints at this time. Related Data Home Medications Medication Instructions Recorded Confirmed hydroxyzine pamoate 25 mg capsule 25 mg PO TID Anxiety 11/22/17 08/10/21 polyethylene glycol 3350 17 17 g PO BID 06/15/21 08/10/21 gram/dose oral powder amoxicillin 400 mg/5 mL oral 400 mg PO BID 08/10/21 08/10/21 suspension cetirizine 1 mg/mL oral solution 10 mg PO DAILY PRN 08/10/21 08/10/21 (Children's Zyrtec Allergy) metoprolol succinate 25 mg 25 mg PO DAILY 08/10/21 08/10/21 tablet,extended release 24 hr Previous Rx's Medication Instructions Recorded cyproheptadine 4 mg tablet 8 mg (2 x 4 mg) PO HS #60 tabs 08/10/21 clindamycin HCl 300 mg capsule 300 mg PO TID #30 caps 12/23/21 indomethacin 50 mg capsule 50 mg PO TID 1 week #21 caps 04/08/24 omeprazole 20 mg capsule,delayed 20 mg PO DAILY 28 days #28 caps 04/08/24 release Allergies Allergy/AdvReac Type Severity Reaction Status Date / Time nitrofurantoin Allergy Severe S-ANAPHYLAX Verified 08/10/21 08:11 [From MACROBID] IS cefdinir [From OMNICEF] Allergy Mild Verified 08/10/21 08:11 clavulanic acid Allergy Mild Verified 08/10/21 08:11 [From AUGMENTIN] Sulfa (Sulfonamide Allergy Mild Verified 08/10/21 08:11 Antibiotics) [SULFA (SULFONAMIDE ANTIBIOTICS)] azithromycin [AZITHROMYCIN] Allergy Unknown Verified 08/10/21 08:11 hydrocodone [From LORTAB] Allergy Unknown Verified 08/10/21 08:11 PFSH <Mumtaz Souza MD - Last Filed: 04/08/24 06:59> [facility] Disclaimer: The information contained in this section may have been updated after the patient was seen, as this information can be updated by other users. Social History Smoking Status: Never smoker second hand exposure: Yes alcohol intake: never substance use type: former substance user and marijuana current occupational status: disabled Travel in the last 8 weeks: None household members: other housing: apartment caffeine: Yes <Mumtaz Souza MD - Last Filed: 04/08/24 06:59> ROS Obtained: Yes Systems reviewed as appropriate & no additional complaints except as documented Physical Exam <Mumtaz Souza MD - Last Filed: 04/08/24 06:59> General General appearance: alert and in no apparent distress Head Head exam: atraumatic and normocephalic Eye Eye exam: Present PERRL ENT ENT exam: Present mucous membranes moist Neck Neck exam: Present normal inspection Chest Chest inspection: Present normal inspection and symmetric chest wall rise Respiratory Respiratory exam: Present normal lung sounds bilaterally; Absent respiratory distress Cardiovascular Cardiovascular exam: Present regular rate and normal rhythm Abdominal Exam Abdominal exam: Present soft; Absent tenderness Extremities Exam Extremities exam: Present normal inspection Neurological Exam Neurological exam: Present alert and CN II-XII intact Psychiatric Psychiatric exam: Present anxious Skin Skin exam: Present warm and dry HEART Score <Mumtaz Souza MD - Last Filed: 04/08/24 06:59> HEART Score HEART Score assessment performed?: No History (anamnesis): Moderately suspicious Age: <45 years Critical Care <Mumtaz Souza MD - Last Filed: 04/08/24 06:59> Critical Care Time Critical Care Time: No Medical Decision Making <Mumtaz Souza MD - Last Filed: 04/08/24 06:59> [facility] Inquiry Pt receiving controlled substance: No Vital Signs Vital Signs: 04/08/24 06:23 04/08/24 07:00 04/08/24 07:30 Temperature 98.0 F Temperature Source Oral Pulse Rate 60 60 Pulse Rate [Right Radial] 70 Respiratory Rate 20 Blood Pressure 110/75 103/66 L Blood Pressure [Right Arm] 118/74 Blood Pressure Mean [Right Arm] 88 Blood Pressure Source [Right Arm] Automatic Cuff Blood Pressure Position [Right Arm] Sitting 02 Sat by Pulse Oximetry 98 100 100 Oxygen Delivery Method Room Air 04/08/24 08:06 04/08/24 08:31 04/08/24 09:01 Temperature Temperature Source Pulse Rate 58 L 70 67 Pulse Rate [Right Radial] Respiratory Rate Blood Pressure 118/98 H 107/80 L 84/62 L Blood Pressure [Right Arm] Blood Pressure Mean [Right Arm] Blood Pressure Source [Right Arm] Blood Pressure Position [Right Arm] 02 Sat by Pulse Oximetry 99 100 99 Oxygen Delivery Method 04/08/24 10:58 Temperature 98.0 F Temperature Source Pulse Rate 61 Pulse Rate [Right Radial] Respiratory Rate 13 Blood Pressure 107/80 L Blood Pressure [Right Arm] Blood Pressure Mean [Right Arm] Blood Pressure Source [Right Arm] Blood Pressure Position [Right Arm] 02 Sat by Pulse Oximetry Oxygen Delivery Method Lab Data Labs: Lab Results 04/08/24 07:00: WBC 7.5, RBC 4.21, Hgb 13.1, Hct 39.1, MCV 92.8, MCH 31.1, MCHC 33.5, RDW 13.2, Plt Count 311, MPV 8.6, Neut % (Auto) 49.8, Lymph % (Auto) 40.8, [place] % (Auto) 5.8, Eos % (Auto) 2.4, Baso % (Auto) 1.1, Neut # (Auto) 3.7, Lymph # (Auto) 3.1, [place] # (Auto) 0.4, Eos # (Auto) 0.2, Baso # (Auto) 0.1, Sodium 140, Potassium 3.1 L, Chloride 104, Carbon Dioxide 25, Anion Gap 14.1, BUN 6 L, Creatinine 0.70, Estimated Creat Clear 86, Estimated GFR 100, Est GFR ( Amer) 121, Glucose 91, Calcium 9.5, Total Bilirubin 0.5, AST 32, ALT 23, Alkaline Phosphatase 72, Troponin I < 0.01, Total Protein 7.7, Albumin 4.5, Globulin 3.2, Albumin/Globulin Ratio 1.4, Serum HCG, Qual Negative 04/08/24 09:14: Troponin I < 0.01 04/08/24 07:00 04/08/24 07:00 Response Orders (Tests/Meds): ED MEDICATIONS Discontinued Medications Generic Name Dose Route Start Last Admin Trade Name Prudencio PRN Reason Stop Dose Admin Acetaminophen 1,000 mg 04/08/24 06:51 04/08/24 07:07 Acetaminophen 500mg Tab PO 04/08/24 06:52 Not Given ONCE ONE Aspirin 324 mg 04/08/24 06:49 04/08/24 07:03 Aspirin 81mg Chewable Tablet PO 04/08/24 06:50 324 mg ONCE ONE Administration ORDERS Category Date Time Status CXR 2 view (NOT portable) [XR chest 2V] Stat Exams 04/08/24 06:49 Completed POCUS Point of Care (ER Only) Stat Exams 04/08/24 06:35 Completed CBC w/Auto Diff [Complete Blood Count Auto Diff] Stat Lab 04/08/24 07:00 Completed CMP [Comprehensive Metabolic Panel] Stat Lab 04/08/24 07:00 Completed HCG Qualitative, Serum Stat Lab 04/08/24 07:00 Completed Trop I [Troponin I] Stat Lab 04/08/24 07:00 Completed Troponin I Q3H Lab 04/08/24 09:14 Completed EKG Request [ECG Request] Stat Y 04/08/24 06:51 Ordered MDM Narrative Medical Decision Narrative: In summary patient is a 28-year-old female past medical history described above presents emergency department for evaluation of chest pain. Patient is hemodynamically stable nontoxic-appearing upon arrival, afebrile. Differential diagnosis includes cardiac chest pain, pleurisy, among others. Workup will be conducted with hematologic labs, two-view chest x-ray, EKG, 2-hour troponins. Initial inventions include Tylenol, aspirin. Workup and repeat evaluation was largely pending at time of transition of care to the oncoming physician, Dr. Butterfield. Dictate EKG/HEART Score Indication: Chest pain Identified cardiac views: Parasternal long axis Parasternal short axis Identified lung views: Bilateral lung views Findings: Cardiac activity present, gross wall motion normal, no large pericardial effusion, bilateral lung sliding Impression: -From above Images were to permanent archive The study was technically adequate CPT: 97078 This study was performed by me, and I personally interpreted all images/videos. Based on my clinical judgement, these images were [adequate/inadequate] and [did/did not] necessitate further imaging. <Raul Butterfield MD - Last Filed: 04/08/24 18:29> Vital Signs Vital Signs: 04/08/24 06:23 04/08/24 07:00 04/08/24 07:30 Temperature 98.0 F Temperature Source Oral Pulse Rate 60 60 Pulse Rate [Right Radial] 70 Respiratory Rate 20 Blood Pressure 110/75 103/66 L Blood Pressure [Right Arm] 118/74 Blood Pressure Mean [Right Arm] 88 Blood Pressure Source [Right Arm] Automatic Cuff Blood Pressure Position [Right Arm] Sitting 02 Sat by Pulse Oximetry 98 100 100 Oxygen Delivery Method Room Air 04/08/24 08:06 04/08/24 08:31 04/08/24 09:01 Temperature Temperature Source Pulse Rate 58 L 70 67 Pulse Rate [Right Radial] Respiratory Rate Blood Pressure 118/98 H 107/80 L 84/62 L Blood Pressure [Right Arm] Blood Pressure Mean [Right Arm] Blood Pressure Source [Right Arm] Blood Pressure Position [Right Arm] 02 Sat by Pulse Oximetry 99 100 99 Oxygen Delivery Method 04/08/24 10:58 Temperature 98.0 F Temperature Source Pulse Rate 61 Pulse Rate [Right Radial] Respiratory Rate 13 Blood Pressure 107/80 L Blood Pressure [Right Arm] Blood Pressure Mean [Right Arm] Blood Pressure Source [Right Arm] Blood Pressure Position [Right Arm] 02 Sat by Pulse Oximetry Oxygen Delivery Method Lab Data Labs: Lab Results 04/08/24 07:00: WBC 7.5, RBC 4.21, Hgb 13.1, Hct 39.1, MCV 92.8, MCH 31.1, MCHC 33.5, RDW 13.2, Plt Count 311, MPV 8.6, Neut % (Auto) 49.8, Lymph % (Auto) 40.8, [place] % (Auto) 5.8, Eos % (Auto) 2.4, Baso % (Auto) 1.1, Neut # (Auto) 3.7, Lymph # (Auto) 3.1, [place] # (Auto) 0.4, Eos # (Auto) 0.2, Baso # (Auto) 0.1, Sodium 140, Potassium 3.1 L, Chloride 104, Carbon Dioxide 25, Anion Gap 14.1, BUN 6 L, Creatinine 0.70, Estimated Creat Clear 86, Estimated GFR 100, Est GFR ( Amer) 121, Glucose 91, Calcium 9.5, Total Bilirubin 0.5, AST 32, ALT 23, Alkaline Phosphatase 72, Troponin I < 0.01, Total Protein 7.7, Albumin 4.5, Globulin 3.2, Albumin/Globulin Ratio 1.4, Serum HCG, Qual Negative 04/08/24 09:14: Troponin I < 0.01 Response Orders (Tests/Meds): ED MEDICATIONS Discontinued Medications Generic Name Dose Route Start Last Admin Trade Name Freq PRN Reason Stop Dose Admin Acetaminophen 1,000 mg 04/08/24 06:51 04/08/24 07:07 Acetaminophen 500mg Tab PO 04/08/24 06:52 Not Given ONCE ONE Aspirin 324 mg 04/08/24 06:49 04/08/24 07:03 Aspirin 81mg Chewable Tablet PO 04/08/24 06:50 324 mg ONCE ONE Administration ORDERS Category Date Time Status CXR 2 view (NOT portable) [XR chest 2V] Stat Exams 04/08/24 06:49 Completed POCUS Point of Care (ER Only) Stat Exams 04/08/24 06:35 Completed CBC w/Auto Diff [Complete Blood Count Auto Diff] Stat Lab 04/08/24 07:00 Completed CMP [Comprehensive Metabolic Panel] Stat Lab 04/08/24 07:00 Completed HCG Qualitative, Serum Stat Lab 04/08/24 07:00 Completed Trop I [Troponin I] Stat Lab 04/08/24 07:00 Completed Troponin I Q3H Lab 04/08/24 09:14 Completed EKG Request [ECG Request] Stat Y 04/08/24 06:51 Ordered MDM Narrative Medical Decision Narrative: In summary patient is a 28-year-old female past medical history described above presents emergency department for evaluation of chest pain. Patient is hemodynamically stable nontoxic-appearing upon arrival, afebrile. Differential diagnosis includes cardiac chest pain, pleurisy, among others. Workup will be conducted with hematologic labs, two-view chest x-ray, EKG, 2-hour troponins. Initial inventions include Tylenol, aspirin. Workup and repeat evaluation was largely pending at time of transition of care to the oncoming physician, Dr. Butterfield. Dictate EKG/HEART Score Indication: Chest pain Identified cardiac views: Parasternal long axis Parasternal short axis Identified lung views: Bilateral lung views Findings: Cardiac activity present, gross wall motion normal, no large pericardial effusion, bilateral lung sliding Impression: -From above Images were to permanent archive The study was technically adequate CPT: 15697 This study was performed by me, and I personally interpreted all images/videos. Based on my clinical judgement, these images were [adequate/inadequate] and [did/did not] necessitate further imaging. Raul Butterfield MD: I assumed care of this patient from the previous emergency medicine physician. Upon repeat evaluation patient reports stability of symptoms. Second troponin undetectable. EKG with no ischemic changes. She describes to me that her chest pain is exacerbated by lying flat, markedly improved with leaning forward, is principally located in her back but radiates to her chest, and no associated preceding abdominal pain. She does state that she had preceding URI. Although troponins flat, previous physicians ultrasound reportedly without pericardial effusion, and no diffuse ST elevation, I do believe patient's signs and symptoms are consistent with pericarditis. 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 I additionally prescribed PPI and instructed her to discontinue home aspirin 325. She is stable for discharge at this time. Return precautions given.
[2024-04-08] MEDS: ASPIRIN 81MG CHEWABLE TABLET 324 MG PO (07:03)
--- NOTE | 2024-04-08 07:08 | ECG_ITS ---
APPROVED REPORT Exam: Resting ECG HR:67 bpm ECG Measurements Heart Rate 67 AXES WI 131 P 78 QRSd 97 QRS 87 QT 385 T 84 QTc 400 Conclusion SINUS RHYTHM WITH SINUS ARRHYTHMIA POSSIBLE RIGHT VENTRICULAR CONDUCTION DELAY [RSR (QR) IN V1/V2] BORDERLINE ECG UNCONFIRMED REPORT Electronically signed by : DINORA SELLERS, 04/10/2024 02:50:11
[2024-04-08 07:21] LABS: Basophils # 0.1 K/mm3 (0-0.2); Basophils % 1.1 % (0.1-2.0); Eosinophils # 0.2 K/mm3 (0.0-0.4); Eosinophils % 2.4 % (0.1-12.0); Hematocrit 39.1 % (37.0-47.0); Hemoglobin 13.1 g/dL (12.2-16.2); Lymphocytes # 3.1 K/mm3 (0.7-4.5); Lymphocytes % 40.8 % (10-50); Mean Corpuscular HGB Conc 33.5 g/dL (31.8-35.4); Mean Corpuscular Hemoglobin 31.1 pg (27.0-31.2); Mean Corpuscular Volume 92.8 fl (81-99); Mean Platelet Volume 8.6 fl (7.4-10.4); Monocytes # 0.4 K/mm3 (0.1-1.0); Monocytes % 5.8 % (1.7-9.3); Neutrophils # 3.7 K/mm3 (1.8-7.8); Neutrophils % 49.8 % (37.0-80.0); Platelet Count 311 K/mm3 (142-424); Red Blood Count 4.21 M/mm3 (4.20-5.40); Red Cell Distribution Width 13.2 % (11.5-17.5); White Blood Count 7.5 K/mm3 (4.8-10.8)
[2024-04-08 07:38] LABS: Alanine Aminotransferase 23 U/L (12-78); Albumin Level 4.5 g/dl (3.5-5.0); Albumin/Globulin Ratio 1.4 (1.1-1.8); Alkaline Phosphatase 72 U/L (38-126); Anion Gap 14.1 mEq/L (5-15); Aspartate Amino Transferase 32 U/L (14-36); Bilirubin,Total 0.5 mg/dl (0.2-1.3); Blood Urea Nitrogen 6 mg/dl (7-17); Calcium 9.5 mg/dl (8.4-10.2); Carbon Dioxide 25 mmol/L (22.0-30.0); Chloride 104 mmol/L (98-107); Creatinine Clearance Estimated 86 mL/min (50-200); Estimated Glomerular Filt Rate 100 ml/min (>60); GFR (African American) 121 ML/MIN (>60); Globulin 3.2 g/dL (1.3-3.2); Glucose 91 mg/dl (74-100); Potassium 3.1 mmoL/L (3.5-5.1); Sodium 140 mmol/L (136-145); Total Protein,Serum 7.7 g/dl (6.3-8.2)
[2024-04-08 07:39] LABS: HCG Qualitative, Serum Negative (Negative)
[2024-04-08 07:52] LABS: Troponin I < 0.01 ng/ml (0.00-0.034)
[2024-04-08 09:44] LABS: Troponin I < 0.01 ng/ml (0.00-0.034)
== END 2024-04-08 11:01 | disposition home or self-care (01) ==
PROVIDERS: Emergency Medicine; Emergency Provider Emergency Medicine; PCP Nurse Practitioner
DX: I31.9 Disease of pericardium, unspecified (principal); R07.89 Other chest pain; E87.6 Hypokalemia
CPT/HCPCS: 71046; 80053; 84484; 84703; 85025; 93005; 99285